=== PATIENT | female | born 1955 | race Caucasian/White ===

== ENCOUNTER 2017-04-01 13:01 | Outpatient (CLI) | payer OTHER ==
--- NOTE | 2017-04-05 14:22 | Mammography Report ---
DATE OF SERVICE: 04/01/2017 DIGITAL BILATERAL SCREENING MAMMOGRAM: 04/01/2017 CLINICAL INDICATION: A 62-year-old for screening. COMPARISON: 02/2016, 02/2015, 02/2014, 02/2013, 02/2012, 01/2011, 01/2010. TECHNIQUE: Routine CC and MLO projections were obtained of the breasts. Bilateral Laterally exaggerated craniocaudal views. FINDINGS: No suspicious masses, clustered microcalcifications, or regions of architectural distortion are identified. There has been no significant interval change. IMPRESSION: Benign findings. RECOMMENDATIONS: Routine annual screening unless otherwise clinically indicated. BIRADS 2 Benign findings. STANDARD QUALIFYING STATEMENTS 1. This examination was reviewed with the aid of Computed-Aided Detection (CAD) . 2. A negative or benign imaging report should not delay biopsy if clinically suspicious findings are present. Consider surgical consultation if warranted. More than 5% of cancers are not identified by imaging. 3. Dense breasts may obscure an underlying neoplasm. TD: 04/02/2017 18:43 [facility]
== END 2017-04-01 13:02 | disposition home or self-care (01) ==
LOC: DI 13:01
PROVIDERS: ATTEND Family Medicine
DX: Z12.31 Encounter for screening mammogram for malignant neoplasm of breast (principal)
CPT/HCPCS: 77067

== ENCOUNTER 2017-04-01 13:01 | Outpatient (CLI) | payer OTHER ==
--- NOTE | 2017-04-03 10:24 | DEXA Report ---
DEXA SCAN: 04/01/2017 CLINICAL INDICATION: Postmenopausal. TECHNIQUE: Dual energy x-ray absorptiometry (DXA) was performed on a [employer] system. Regions measured are the AP spine, femoral neck, and, if needed, forearm. COMPARISON: None. In accordance with the International Society for Clinical Densitometry (ISCD) guidelines, data from previous exams may be reanalyzed using current recommendations and techniques. This is done to allow a more accurate basis for comparison with the current study. FINDINGS: The data for the lumbar spine is as follows: REGION BMD (g/cm/cm) T-SCORE Z-SCORE L1 0.861 -2.2 --- L2 0.972 -1.9 --- L3 1.026 -1.4 --- L4 0.948 -2.1 --- TOTAL 0.953 -1.9 --- NOTE: All evaluable vertebrae are used for classification. The data for the hip is as follows: REGION BMD (g/cm/cm) T-SCORE Z-SCORE Neck 0.737 -2.2 --- TOTAL 0.804 -1.6 --- NOTE: The femoral neck or total proximal femur, whichever is lowest, is used for classification. IMPRESSION: THE WHO CLASSIFICATION BASED ON THE INTERNATIONAL REFERENCE STANDARD IS OSTEOPENIA. THE FRACTURE RISK IS INCREASED. RECOMMENDATION: Patients with diagnosis of osteoporosis or osteopenia should have regular bone mineral density assessment. For those eligible for Medicare, routine testing is allowed once every 2 years. Testing frequency can be increased for patients who have rapidly progressing disease or for those who are receiving medical therapy to restore bone mass. COMMENT: World Health Organization (WHO) definitions for osteoporosis and osteopenia: NORMAL BMD: T-score at 1.0 or higher, fracture risk is low. OSTEOPENIA BMD: T-score between 1.0 and -2.5, fracture risk is increased. OSTEOPOROSIS BMD: T-score at 2.5 or lower, fracture risk high. National Osteoporosis Foundation recommends: 1. Obtain adequate dietary calcium (at least 1200 mg per day) and vitamin D (400 -800 international units per day). 2. Participate, as appropriate, in regular weightbearing and muscle- strengthening exercise. 3. Avoid tobacco use and reduce alcohol and caffeine intake. 4. For more detailed information see the website at www.NOF.org. Harpal Rosales MD NILA TD: 04/03/2017 09:10 JORDAN
== END 2017-04-01 13:02 | disposition home or self-care (01) ==
LOC: DI 13:01
PROVIDERS: ATTEND Family Medicine
DX: M89.9 Disorder of bone, unspecified (principal); M85.80 Other specified disorders of bone density and structure, unspecified site
CPT/HCPCS: 77080

== ENCOUNTER 2018-02-13 12:47 | Outpatient (CLI) | payer OTHER ==
[2018-02-13 12:34] LABS: BASOPHILS # (AUTO) 0.1 10^3/uL (0.0-0.1); BASOPHILS % (AUTO) 1.3 %; EOSINOPHILS # (AUTO) 0.1 10^3/uL (0.0-0.7); EOSINOPHILS % (AUTO) 1.3 %; LYMPHOCYTES # (AUTO) 1.4 10^3/uL (1.5-3.5); LYMPHOCYTES % (AUTO) 27.2 %; MEAN CORPUSCULAR HEMOGLOBIN 31.3 pg (27.0-31.0); MEAN CORPUSCULAR HGB CONC 33.7 g/dL (32.0-36.0); MEAN PLATELET VOLUME 8.5 fL (7.9-10.8); MONOCYTES # (AUTO) 0.3 10^3/uL (0.0-1.0); MONOCYTES % (AUTO) 6.5 %; NEUTROPHILS # (AUTO) 3.2 10^3/uL (1.5-6.6); NEUTROPHILS % (AUTO) 63.7 %; PLT - PLATELET COUNT 257 10^3/uL (130-450); RED BLOOD COUNT 4.48 10^6/uL (4.20-5.40); RED CELL DISTRIBUTION WIDTH 13.6 % (12.0-15.0)
[2018-02-13 12:50] LABS: ALBUMIN 4.2 g/dL (3.2-5.5); ALBUMIN/GLOBULIN RATIO 1.3 (1.0-2.2); ALKALINE PHOSPHATASE 57 IU/L (42-121); ALT ALANINE AMINOTRANSFERASE 24 IU/L (10-60); AST ASPARTATE AMINOTRANSFERASE 23 IU/L (10-42); BILIRUBIN,TOTAL 0.9 mg/dL (0.2-1.0); BUN - BLOOD UREA NITROGEN 18 mg/dL (6-20); CALCIUM 9.3 mg/dL (8.5-10.3); CARBON DIOXIDE - CO2 30 mmol/L (21-32); CHLORIDE 103 mmol/L (101-111); CHOL/HDL RATIO 4.8 (<4.4); CHOLESTEROL 223 mg/dL; CREATININE 0.6 mg/dL (0.4-1.0); GFR - MDRD 101 (>89); GLUCOSE 116 mg/dL (70-100); HDL CHOLESTEROL 46 mg/dL; LDL CHOLESTEROL,CALCULATED 143 mg/dL; LDL/HDL RATIO 3.1 (<4.4); SODIUM 140 mmol/L (135-145); TOTAL PROTEIN 7.5 g/dL (6.7-8.2); VLDL CHOLESTEROL 34 mg/dL
== END 2018-02-13 12:48 | disposition home or self-care (01) ==
LOC: LAB.WCP 12:47
PROVIDERS: ATTEND Family Medicine
DX: M85.80 Other specified disorders of bone density and structure, unspecified site (principal); E78.5 Hyperlipidemia, unspecified; K21.9 Gastro-esophageal reflux disease without esophagitis; I10 Essential (primary) hypertension
CPT/HCPCS: 36415; 80053; 80061; 83721; 84443; 85025

== ENCOUNTER 2018-04-02 09:51 | Outpatient (CLI) | payer OTHER ==
--- NOTE | 2018-04-03 08:57 | Mammography Report ---
Reason: SCREENING MAMM Procedure Date: 04/02/2018 Accession Number: [id number] / [id number] Procedure: MGN - Screening Mammo Dig Bilat CPT Code: FULL RESULT: EXAM: Screening Mammo Dig Bilat DATE: 04/02/2018 10:11 AM CLINICAL HISTORY: Screening. No reported personal or family history of breast cancer. TECHNIQUE: Bilateral CC and MLO views were obtained. COMPARISON: 04/01/2017 through 02/23/2014 FINDINGS: The breasts demonstrate heterogeneously dense fibroglandular parenchyma bilaterally. Bilateral breasts: There are no suspicious masses, calcifications or areas of distortion. IMPRESSION: Negative examination RECOMMENDATION: Routine annual screening unless otherwise clinically indicated. BI-RADS CATEGORY 1: Negative STANDARD QUALIFYING STATEMENTS: 1. This examination was reviewed with the aid of Computer-Aided Detection (CAD). 2. A negative or benign imaging report should not preclude biopsy if clinically suspicious findings are present. 3. Dense breasts may obscure an underlying neoplasm. 4. This examination was reviewed without the aid of 3D breast imaging (tomosynthesis).
== END 2018-04-02 09:52 | disposition home or self-care (01) ==
LOC: DI.N 09:51
DX: Z12.31 Encounter for screening mammogram for malignant neoplasm of breast (principal)
CPT/HCPCS: 77067

== ENCOUNTER 2018-06-13 07:15 | Outpatient (CLI) | payer OTHER ==
[2018-06-13 14:11] LABS: HB2 TOTAL 14.4 g/dL; HEMOGLOBIN A1C 0.6 g/dL
== END 2018-06-13 07:16 | disposition home or self-care (01) ==
LOC: LAB.WCP 07:15
PROVIDERS: ATTEND Family Medicine
DX: R73.01 Impaired fasting glucose (principal)
CPT/HCPCS: 36415; 80048; 83036

== ENCOUNTER 2018-06-17 07:04 | Outpatient (CLI) | payer OTHER ==
[2018-06-17 16:44] LABS: CALCIUM 9.8 mg/dL (8.5-10.3); CREATININE 0.9 mg/dL (0.4-1.0)
== END 2018-06-17 07:05 | disposition home or self-care (01) ==
LOC: LAB.WCP 07:04
PROVIDERS: ATTEND Family Medicine
DX: R73.01 Impaired fasting glucose (principal)
CPT/HCPCS: 36415; 80048

== ENCOUNTER 2018-08-07 13:18 | Outpatient (CLI) | payer OTHER ==
--- NOTE | 2018-08-07 14:37 | XRAY Report ---
Reason: COUGH CHRONIC Procedure Date: 08/07/2018 Accession Number: [id number] / [id number] Procedure: WCP - Chest 2 View X-Ray CPT Code: 89048 FULL RESULT: EXAM: CHEST RADIOGRAPHY EXAM DATE: 08/07/2018 01:14 PM. CLINICAL HISTORY: Cough chronic. COMPARISON: None. TECHNIQUE: 2 views. FINDINGS: Lungs/Pleura: No focal opacities evident. No pleural effusion. No pneumothorax. Normal volumes. Mediastinum: Heart and mediastinal contours are within normal limits for size, mild aortic arch calcifications. Other: None. IMPRESSION: No acute airspace disease is detected. RADIA
== END 2018-08-07 13:19 | disposition home or self-care (01) ==
LOC: DI.WCP 13:18
PROVIDERS: ATTEND Physician Assistant Medical
DX: R05 Cough (principal)
CPT/HCPCS: 71046

== ENCOUNTER 2018-08-20 15:13 | Outpatient (CLI) | payer OTHER ==
[2018-08-20] MEDS ORDERED: IOVERSOL 320 100 ML VIAL IVP ONE (15:32)
[2018-08-20 15:44] LABS: CREATININE 0.9 mg/dL (0.4-1.0)
--- NOTE | 2018-08-21 10:07 | CT Report ---
Reason: COUGH,CHRONIC Procedure Date: 08/20/2018 Accession Number: [id number] / [id number] Procedure: CT - CHEST W CPT Code: FULL RESULT: EXAM: CT CHEST EXAM DATE: 08/20/2018 04:10 PM. CLINICAL HISTORY: Cough, chronic. COMPARISONS: None. TECHNIQUE: Routine helical CT imaging was performed through the chest. IV contrast: 80 mL Optiray 320. Reconstructions: Coronal and sagittal. In accordance with CT protocol optimization, one or more of the following dose reduction techniques were utilized for this exam: automated exposure control, adjustment of mA and/or KV based on patient size, or use of iterative reconstructive technique. FINDINGS: Lungs/Pleura: There is a 3 mm right upper lobe nodule on image 20 series 4. There is a 2 mm nodule in the right upper lobe on image 34. There is a 2 mm nodule in the left upper lobe on image 19. There is a 2 mm nodule in the left upper lobe on image 31. There is a 3 mm nodule in the left lower lobe on image 46. There is a 2 mm fissure/pleural-based nodule along the inferior left fissure on image 45. No bronchial thickening, consolidation, or edema. Pulmonary vasculature is normal. No pericardial or pleural effusion. No pneumothorax. Mediastinum: Normal. No adenopathy or masses. The heart and great vessels are normal. Bones: No aggressive osseous lesions. Visualized Abdomen: Uncharacterized 2 cm left adrenal nodule is noted. Simple right renal cyst. Other: None. IMPRESSION: Uncharacterized 2 cm left adrenal nodule. Pulmonary nodules measuring 3 mm or less. Recommend follow-up of the described nodule(s) according to the following guidelines: Fleischner Society Recommendations 2017 MacMahon et al. Radiology 2017 Solid Nodules-Low Risk Patients: <6 mm (single or multiple) - No routine follow-up* Solid Nodules-High Risk Patients: <6 mm (single or multiple) -Optional CT at 12 months* *Nodules < 6mm do not require routine follow-up, but suspicious nodule morphology, upper lobe location, or both may warrant 12 month follow-up RADIA
== END 2018-08-20 15:14 | disposition home or self-care (01) ==
LOC: DI 15:13
PROVIDERS: ATTEND Physician Assistant Medical
DX: R05 Cough (principal); R91.8 Other nonspecific abnormal finding of lung field
CPT/HCPCS: 36415; 71260; 82565; Q9967

== ENCOUNTER 2018-11-10 08:48 | Outpatient (CLI) | payer OTHER | END 2018-11-10 08:49 | disposition home or self-care (01) | LOC: RT 08:48 | PROVIDERS: ATTEND Internal Medicine Gastroenterology | DX: I10 Essential (primary) hypertension (principal); E78.5 Hyperlipidemia, unspecified | CPT/HCPCS: 93005 ==

== ENCOUNTER 2018-11-13 | Day surgery (SDC) | payer OTHER | END 2018-11-13 07:02 | disposition home or self-care (01) | PROC: 0DJD8ZZ Inspection of Lower Intestinal Tract, Via Natural or Artificial Opening Endoscopic (ICD-10-PCS; principal; 2018-11-13) | DX: Z12.11 Encounter for screening for malignant neoplasm of colon (principal); E11.9 Type 2 diabetes mellitus without complications; I10 Essential (primary) hypertension; K21.9 Gastro-esophageal reflux disease without esophagitis; E78.5 Hyperlipidemia, unspecified; I35.8 Other nonrheumatic aortic valve disorders; M85.80 Other specified disorders of bone density and structure, unspecified site; C44.310 Basal cell carcinoma of skin of unspecified parts of face; N95.1 Menopausal and female climacteric states; L73.8 Other specified follicular disorders; Z87.19 Personal history of other diseases of the digestive system; Z79.51 Long term (current) use of inhaled steroids; Z79.84 Long term (current) use of oral hypoglycemic drugs; Z79.899 Other long term (current) drug therapy | CPT/HCPCS: 45378; J3010; J7120 ==

== ENCOUNTER 2019-04-21 15:13 | Outpatient (CLI) | payer OTHER ==
--- NOTE | 2019-04-23 09:08 | Mammography Report ---
Reason: ROUTINE MAMMO Procedure Date: 04/21/2019 Accession Number: [id number] / [id number] Procedure: DAVID - Screening Mammo w/Joshua CPT Code: Final Report FULL RESULT: EXAM: Screening Mammo w/Joshua DATE: 04/21/2019 4:09 PM CLINICAL HISTORY: The patient is an asymptomatic 63-year-old female. Family history (sister) with breast cancer. TECHNIQUE: (B) - Bilateral CC and MLO views were obtained. COMPARISON: 04/02/2018, 04/01/2017, 03/13/2016, 02/23/2015, 02/23/2014, 02/18/2013 PARENCHYMAL PATTERN: (D) - The breasts demonstrate heterogeneously dense fibroglandular parenchyma bilaterally. FINDINGS: The pattern of nodular asymmetry is stable given positional variation and progress involution. There are no suspicious masses, calcifications, or areas of distortion. IMPRESSION: Negative examination. BI-RADS category 1. RECOMMENDATION: (ANNUAL) - Recommend routine annual screening mammography. BI-RADS CATEGORY: (1) - Negative. STANDARD QUALIFYING STATEMENTS: A negative or benign imaging report should not preclude biopsy if clinically suspicious findings are present. Dense breasts may obscure an underlying neoplasm. This examination was reviewed with the aid of 3D breast imaging (tomosynthesis).
== END 2019-04-21 15:14 | disposition home or self-care (01) ==
LOC: DI 15:13
DX: Z12.31 Encounter for screening mammogram for malignant neoplasm of breast (principal); Z80.3 Family history of malignant neoplasm of breast
CPT/HCPCS: 77063; 77067

== ENCOUNTER 2019-04-21 15:14 | Outpatient (CLI) | payer OTHER ==
--- NOTE | 2019-04-22 08:46 | DEXA Report ---
Reason: OSTEOPENIA Procedure Date: 04/21/2019 Accession Number: [id number] / [id number] Procedure: DEX - Dexa Spine and/or Hip CPT Code: Final Report FULL RESULT: EXAM: Dexa Spine and/or Hip DATE: 04/21/2019 4:11 PM CLINICAL HISTORY: OSTEOPENIA TECHNIQUE: Dual energy x-ray absorptiometry (DXA) was performed on a [employer] System. Regions measured are the AP Spine, femoral neck, and if needed forearm. COMPARISON: 04/01/2017 In accordance with the International Society for Clinical Densitometry (ISCD) guidelines, data from previous exams may be reanalyzed using current recommendations and techniques. This is done to allow a more accurate basis for comparison with the current study. FINDINGS: The data for the lumbar spine is as follows: BMD (g/cm/cm) T-SCORE Z-SCORE REGION L1 1.002 -1.1 L2 1.082 -1.0 L3 1.104 -0.8 L4 1.124 -0.6 TOTAL 1.078 -0.8 NOTE: All evaluable vertebrae are used for classification The data for the hip is as follows: BMD (g/cm/cm) T-SCORE Z-SCORE REGION Neck 0.759 -2.0 TOTAL 0.805 -1.6 NOTE: The femoral neck or total proximal femur, whichever is lowest, is used for classification. DXA RESULTS SUMMARY: Spine SCAN DATE AGE BMD CHANGE VS CHANGE VS PREVIOUS PREVIOUS % 3/21/2019 [age] 1.078 0.125* 13.1* 04/01/2017 [age] 0.953 * Denotes significant change at the 95% confidence level. Denotes dissimilar scan types or analysis methods. DXA RESULTS SUMMARY: Hip SCAN DATE AGE BMD CHANGE VS CHANGE VS PREVIOUS PREVIOUS % [birth year][age]21/2019 [age] 0.805 0.001 0.1 04[birth year]01[birth year]2017 [age] 0.804 * Denotes significant change at the 95% confidence level. Denotes dissimilar scan types or analysis methods. IMPRESSION: THE WHO CLASSIFICATION BASED ON THE INTERNATIONAL REFERENCE STANDARD IS OSTEOPENIA. THE FRACTURE RISK IS INCREASED. RECOMMENDATION: Patients with diagnosis of osteoporosis or osteopenia should have regular bone mineral density assessment. For those eligible for Medicare, routine testing is allowed once every 2 years. Testing frequency can be increased for patients who have rapidly progressing disease or for those who are receiving medical therapy to restore bone mass. COMMENT: World Health Organization (WHO) definitions for osteoporosis and osteopenia: NORMAL BMD: T-score at -1.0 or higher, fracture risk is low OSTEOPENIA BMD: T-score between -1.0 and -2.5, fracture risk is increased. OSTEOPOROSIS BMD: T-score at -2.5 or lower, fracture risk is high. National Osteoporosis Foundation recommends: 1. Obtain adequate dietary calcium (at least 1200 mg per day) and vitamin D (400-800 international units per day). 2. Participate, as appropriate, in regular weightbearing and muscle-strengthening exercise. 3. Avoid tobacco use and reduce alcohol and caffeine intake. 4. For more detailed information see the website at www.NOF.org.
== END 2019-04-21 15:15 | disposition home or self-care (01) ==
LOC: DI 15:14
PROVIDERS: ATTEND Family Medicine
DX: M85.88 Other specified disorders of bone density and structure, other site (principal)
CPT/HCPCS: 77080

== ENCOUNTER 2019-05-11 08:00 | Outpatient (CLI) | payer OTHER | END 2019-05-11 23:59 | disposition home or self-care (01) | LOC: LAB.R 08:00 | PROVIDERS: ATTEND Family Medicine | DX: R19.7 Diarrhea, unspecified (principal) | CPT/HCPCS: 81599; 87045; 87046; 87177; 87209; 87493 ==

== ENCOUNTER 2019-05-11 08:00 | Outpatient (CLI) | payer OTHER ==
[2019-05-11 18:42] LABS: BASOPHILS # (AUTO) 0.1 10^3/uL (0.0-0.1); BASOPHILS % (AUTO) 1.3 %; EOSINOPHILS # (AUTO) 0.1 10^3/uL (0.0-0.7); EOSINOPHILS % (AUTO) 1.2 %; HGB - HEMOGLOBIN 14.1 g/dL (12.0-16.0); LYMPHOCYTES # (AUTO) 1.3 10^3/uL (1.5-3.5); LYMPHOCYTES % (AUTO) 16.9 %; MEAN CORPUSCULAR HEMOGLOBIN 30.8 pg (27.0-31.0); MEAN CORPUSCULAR HGB CONC 32.3 g/dL (32.0-36.0); MEAN CORPUSCULAR VOLUME 95.4 fL (81.0-99.0); MEAN PLATELET VOLUME 10.5 fL (7.9-10.8); MONOCYTES # (AUTO) 0.5 10^3/uL (0.0-1.0); MONOCYTES % (AUTO) 6.1 %; NEUTROPHILS # (AUTO) 5.8 10^3/uL (1.5-6.6); NEUTROPHILS % (AUTO) 74.1 %; PLT - PLATELET COUNT 306 10^3/uL (130-450); RED BLOOD COUNT 4.58 10^6/uL (4.20-5.40); RED CELL DISTRIBUTION WIDTH 13.2 % (12.0-15.0); WHITE BLOOD COUNT 7.8 x10^3/uL (4.8-10.8)
[2019-05-11 19:06] LABS: ALBUMIN 4.3 g/dL (3.2-5.5); ALBUMIN/GLOBULIN RATIO 1.2 (1.0-2.2); BILIRUBIN,TOTAL 0.7 mg/dL (0.2-1.0); CALCIUM 9.7 mg/dL (8.5-10.3); CREATININE 0.8 mg/dL (0.4-1.0); TOTAL PROTEIN 7.8 g/dL (6.7-8.2)
== END 2019-05-11 23:59 | disposition home or self-care (01) ==
LOC: LAB.WCP 08:00
PROVIDERS: ATTEND Family Medicine
DX: K52.9 Noninfective gastroenteritis and colitis, unspecified (principal)
CPT/HCPCS: 36415; 80053; 81599; 85025; 87045; 87046; 87177; 87209; 87329; 87493

== ENCOUNTER 2019-12-16 07:26 | Outpatient (CLI) | payer OTHER ==
[2019-12-16 12:10] LABS: BASOPHILS # (AUTO) 0.1 10^3/uL (0.0-0.1); BASOPHILS % (AUTO) 1.3 %; EOSINOPHILS # (AUTO) 0.1 10^3/uL (0.0-0.7); EOSINOPHILS % (AUTO) 2.1 %; HGB - HEMOGLOBIN 13.8 g/dL (12.0-16.0); LYMPHOCYTES # (AUTO) 1.8 10^3/uL (1.5-3.5); LYMPHOCYTES % (AUTO) 29.7 %; MEAN CORPUSCULAR HEMOGLOBIN 30.3 pg (27.0-31.0); MEAN CORPUSCULAR HGB CONC 31.4 g/dL (32.0-36.0); MEAN CORPUSCULAR VOLUME 96.5 fL (81.0-99.0); MEAN PLATELET VOLUME 10.2 fL (7.9-10.8); MONOCYTES # (AUTO) 0.5 10^3/uL (0.0-1.0); MONOCYTES % (AUTO) 8.1 %; NEUTROPHILS # (AUTO) 3.6 10^3/uL (1.5-6.6); NEUTROPHILS % (AUTO) 58.5 %; PLT - PLATELET COUNT 287 10^3/uL (130-450); RED BLOOD COUNT 4.55 10^6/uL (4.20-5.40); RED CELL DISTRIBUTION WIDTH 13.3 % (12.0-15.0); WHITE BLOOD COUNT 6.2 x10^3/uL (4.8-10.8)
[2019-12-16 12:15] LABS: ALBUMIN/GLOBULIN RATIO 1.3 (1.0-2.2); ALKALINE PHOSPHATASE 61 IU/L (42-121); ALT ALANINE AMINOTRANSFERASE 29 IU/L (10-60); AST ASPARTATE AMINOTRANSFERASE 21 IU/L (10-42); BILIRUBIN,TOTAL 0.6 mg/dL (0.2-1.0); BUN - BLOOD UREA NITROGEN 18 mg/dL (6-20); CALCIUM 9.2 mg/dL (8.5-10.3); CARBON DIOXIDE - CO2 32 mmol/L (21-32); CHLORIDE 101 mmol/L (101-111); CHOLESTEROL 230 mg/dL; CREATININE 0.8 mg/dL (0.4-1.0); GLUCOSE 90 mg/dL (70-100); HDL CHOLESTEROL 46 mg/dL; LDL CHOLESTEROL,CALCULATED 135 mg/dL; LDL/HDL RATIO 2.9 (<4.4); SODIUM 142 mmol/L (135-145); TOTAL PROTEIN 7.2 g/dL (6.7-8.2); VLDL CHOLESTEROL 49 mg/dL
[2019-12-16 12:32] LABS: HEMOGLOBIN A1c% 5.9 % (4.27-6.07)
== END 2019-12-16 23:59 | disposition home or self-care (01) ==
LOC: LAB.WCP 07:26
PROVIDERS: ATTEND Family Medicine
DX: R73.03 Prediabetes (principal)
CPT/HCPCS: 36415; 80053; 80061; 83036; 83721; 85025

== ENCOUNTER 2020-05-04 13:18 | Outpatient (CLI) | payer OTHER ==
--- NOTE | 2020-05-05 09:47 | Mammography Report ---
BILATERAL DIGITAL SCREENING MAMMOGRAM 3D/2D: 05/04/2020 CLINICAL: Family history of breast cancer. Routine screening. Comparison is made to exams dated: 04/21/2019 mammogram, 04/02/2018 mammogram, 04/01/2017 mammogram, 05/13/2015 mammogram, 02/23/2015 mammogram, and 02/23/2014 mammogram - [facility]. The tissue of both breasts is heterogeneously dense. This may lower the sensitivity of mammography. No significant masses, calcifications, or other findings are seen in either breast. There has been no significant interval change. IMPRESSION: NEGATIVE There is no mammographic evidence of malignancy. A 1 year screening mammogram is recommended. This exam was interpreted at Station ID: [id number]. NOTE: For mammograms, a report in lay terms will be sent to the patient. Approximately 15% of breast malignancies will not be visualized mammographically. In the management of a palpable breast mass, a negative mammogram must not discourage biopsy of a clinically suspicious lesion. Electronically Signed By: Joni Irene M.D. [facility] [place]:05/04/2020 17:16:41 ACR BI-RADS Category 1: Negative 3341F PARENCHYMAL PATTERN: (D) - The breast(s) demonstrate(s) heterogeneously dense fibroglandular karlee luo. BI-RADS CATEGORY: (1) - 1 RECOMMENDATION: (ANNUAL) - Recommend routine annual screening mammography. [id number] 1 year screening LATERALITY: (B)
== END 2020-05-04 13:19 | disposition home or self-care (01) ==
LOC: DI.N 13:18
DX: Z12.31 Encounter for screening mammogram for malignant neoplasm of breast (principal); Z80.3 Family history of malignant neoplasm of breast

== ENCOUNTER 2020-05-11 15:03 | Outpatient (CLI) | payer OTHER ==
--- NOTE | 2020-05-11 16:01 | XRAY Report ---
PROCEDURE: Shoulder 2 View LT INDICATIONS: LEFT SHOULDER IMPINGEMENT SYNDROME TECHNIQUE: 2 views of the shoulder were acquired. COMPARISON: None. FINDINGS: Bones: No fractures or dislocations. No suspicious bony lesions. Visualized ribs appear intact. M oderate periarticular osteophyte formation at the acromial clavicular joint. Mild periarticular osteo phyte formation at the glenohumeral joint. Soft tissues: No suspicious soft tissue calcifications. IMPRESSION: Osteoarthritis. No acute fracture. No osseous lesion. If symptoms and/or clinical suspic ion for pathology continue, further assessment with repeat plain films, or advanced imaging (e.g., CT , MRI, or bone scan) is recommended for further assessment. Reviewed by: Madalyn Warren MD on 05/11/2020 4:00 PM [facility] Approved by: Madalyn Warren MD on 05/11/2020 4:00 PM [facility] Station ID: [id number]
== END 2020-05-11 23:59 | disposition home or self-care (01) ==
LOC: DI.WCP 15:03
PROVIDERS: ATTEND Physician Assistant Medical
DX: M19.012 Primary osteoarthritis, left shoulder (principal)

== ENCOUNTER 2020-05-14 08:02 | Outpatient (CLI) | payer OTHER ==
[2020-05-14 08:26] LABS: BASOPHILS # (AUTO) 0.1 10^3/uL (0.0-0.1); BASOPHILS % (AUTO) 1.1 %; EOSINOPHILS # (AUTO) 0.1 10^3/uL (0.0-0.7); EOSINOPHILS % (AUTO) 1.4 %; LYMPHOCYTES # (AUTO) 1.6 10^3/uL (1.5-3.5); LYMPHOCYTES % (AUTO) 28.8 %; MEAN CORPUSCULAR HEMOGLOBIN 31.4 pg (27.0-31.0); MEAN CORPUSCULAR HGB CONC 33.6 g/dL (32.0-36.0); MEAN CORPUSCULAR VOLUME 93.5 fL (81.0-99.0); MEAN PLATELET VOLUME 9.6 fL (7.9-10.8); MONOCYTES # (AUTO) 0.4 10^3/uL (0.0-1.0); NEUTROPHILS # (AUTO) 3.5 10^3/uL (1.5-6.6); NEUTROPHILS % (AUTO) 61.5 %; PLT - PLATELET COUNT 282 10^3/uL (130-450); RED BLOOD COUNT 4.78 10^6/uL (4.20-5.40); RED CELL DISTRIBUTION WIDTH 12.8 % (12.0-15.0); WHITE BLOOD COUNT 5.7 x10^3/uL (4.8-10.8)
[2020-05-14 09:36] LABS: ALBUMIN 4.1 g/dL (3.2-5.5); ALBUMIN/GLOBULIN RATIO 1.2 (1.0-2.2); ALKALINE PHOSPHATASE 61 IU/L (42-121); ALT ALANINE AMINOTRANSFERASE 30 IU/L (10-60); AST ASPARTATE AMINOTRANSFERASE 23 IU/L (10-42); BUN - BLOOD UREA NITROGEN 16 mg/dL (6-20); CALCIUM 9.7 mg/dL (8.5-10.3); CARBON DIOXIDE - CO2 27 mmol/L (21-32); CHLORIDE 102 mmol/L (101-111); CHOL/HDL RATIO 4.2 (<4.4); CHOLESTEROL 242 mg/dL; CREATININE 0.8 mg/dL (0.4-1.0); GLUCOSE 117 mg/dL (70-100); HDL CHOLESTEROL 58 mg/dL; LDL CHOLESTEROL,CALCULATED 148 mg/dL; LDL/HDL RATIO 2.6 (<4.4); TOTAL PROTEIN 7.4 g/dL (6.7-8.2); VLDL CHOLESTEROL 36 mg/dL
[2020-05-14 09:48] LABS: THYROID STIMULATING HORMONE 1.3 uIU/mL (0.34-5.60)
[2020-05-14 09:50] LABS: FREE T4 (FREE THYROXINE) 1.07 ng/dL (0.58-1.64)
[2020-05-14 11:57] LABS: HEMOGLOBIN A1c% 5.6 % (4.27-6.07)
== END 2020-05-14 08:03 | disposition home or self-care (01) ==
LOC: LAB 08:02
PROVIDERS: ATTEND Family Medicine
DX: E88.81 Metabolic syndrome and other insulin resistance (principal)
CPT/HCPCS: 36415; 80053; 80061; 83036; 83721; 84439; 84443; 85025

== ENCOUNTER 2020-11-04 08:00 | Outpatient (CLI) | payer OTHER ==
[2020-11-04 12:38] LABS: ALBUMIN 4.2 g/dL (3.2-5.5); ALBUMIN/GLOBULIN RATIO 1.2 (1.0-2.2); ALKALINE PHOSPHATASE 58 IU/L (42-121); ALT ALANINE AMINOTRANSFERASE 30 IU/L (10-60); AST ASPARTATE AMINOTRANSFERASE 26 IU/L (10-42); BILIRUBIN,TOTAL 0.9 mg/dL (0.2-1.0); BUN - BLOOD UREA NITROGEN 19 mg/dL (6-20); CALCIUM 9.7 mg/dL (8.5-10.3); CARBON DIOXIDE - CO2 30 mmol/L (21-32); CHLORIDE 100 mmol/L (101-111); CHOL/HDL RATIO 4.8 (<4.4); CHOLESTEROL 241 mg/dL; GFR - MDRD 55 (>89); GLUCOSE 101 mg/dL (70-100); HDL CHOLESTEROL 50 mg/dL; LDL CHOLESTEROL,CALCULATED 151 mg/dL; POTASSIUM 3.7 mmol/L (3.5-5.0); SODIUM 142 mmol/L (135-145); TOTAL PROTEIN 7.7 g/dL (6.7-8.2); TRIGLYCERIDES 202 mg/dL; VLDL CHOLESTEROL 40 mg/dL
[2020-11-04 12:55] LABS: ESTIMATED AVERAGE GLUCOSE 123 mg/dL (70-100); HEMOGLOBIN A1c% 5.9 % (4.27-6.07)
== END 2020-11-04 23:59 | disposition home or self-care (01) ==
LOC: LAB.WCP 08:00
PROVIDERS: ATTEND Physician Assistant Medical
DX: R73.03 Prediabetes (principal)
CPT/HCPCS: 36415; 80053; 80061; 83036; 83721

== ENCOUNTER 2020-12-28 08:58 | Outpatient (CLI) | payer OTHER | END 2020-12-28 08:59 | disposition home or self-care (01) | LOC: DI 08:58 | PROVIDERS: ATTEND Physician Assistant Medical | DX: I35.8 Other nonrheumatic aortic valve disorders (principal) | CPT/HCPCS: 93306 ==

== ENCOUNTER 2021-02-10 00:26 | Inpatient (IN) | payer MEDICARE, OTHER ==
[2021-02-10 00:57] LABS: BILIRUBIN,URINE NEGATIVE (NEGATIVE); CLARITY,URINE CLEAR (CLEAR); GLUCOSE, URINE (UA) NEGATIVE (NEGATIVE); KETONES,URINE (UA) NEGATIVE (NEGATIVE); LEUKOCYTE ESTERASE, URINE NEGATIVE (NEGATIVE); NITRITE,URINE NEGATIVE (NEGATIVE); OCCULT BLOOD,URINE TRACE-LYSE (NEGATIVE); PROTEIN,URINE NEGATIVE (NEGATIVE); UROBILINOGEN,URINE 0.2 (NORMAL) E.U./dL (NORMAL)
--- NOTE | 2021-02-10 01:02 | ED Physician Documentation ---
PD HPI ABD PAIN - Stated complaint Stated Complaint: RLQ PAIN - Chief complaint Chief Complaint: Abd Pain - History obtained from History obtained from: Patient - History of Present Illness Timing - onset: How many hours ago (about 24 hours ago - noted onset of some discomfort RLQ that has steadily worsened to this evening.), Yesterday Timing - duration: Days (1) Timing - details: Gradual onset, Still present Quality: Cramping, Aching, Pain Location: RLQ Radiation: No: Chest, Lower back, Right flank Improved by: No: BM Worsened by: Eating, Moving, Palpation. No: Breathing Associated symptoms: Fever (mild feverish feeling but thought it was related to recent vaccine few days ago.), Nausea. No: Vomiting, Diarrhea, Constipation Similar symptoms before: Has not had sx before Recently seen: Not recently seen Review of Systems Constitutional: reports: Chills, Myalgias Nose: denies: Rhinorrhea / runny nose, Congestion Throat: denies: Sore throat Cardiac: denies: Chest pain / pressure Respiratory: denies: Cough GI: reports: Abdominal Pain (just the past day), Nausea. denies: Vomiting, Constipation, Diarrhea : denies: Dysuria Skin: denies: Rash Neurologic: denies: Focal weakness, Numbness, Near syncope, Headache PD PAST MEDICAL HISTORY - Past Medical History Past Medical History: Yes Cardiovascular: Hypertension Respiratory: None Neuro: None Endocrine/Autoimmune: None GI: None : None - Present Medications Home Medications: Ambulatory Orders Medication Instructions Recorded Confirmed Acyclovir 400 mg PO DAILY PRN 11/10/18 11/10/18 Albuterol 90 mcg IH DAILY PRN 11/10/18 11/10/18 Amoxicillin 2,000 mg PO ONCE PRN 11/10/18 11/10/18 Atenolol [Tenormin] 50 mg PO BID 11/10/18 11/13/18 Benzonatate 100 mg PO DAILY PRN 11/10/18 11/10/18 Calcium Carbonate/Vitamin D3 2 tab PO DAILY 11/10/18 11/10/18 [Calcium 600-Vit D3 800 Tablet] Cyclobenzaprine [Flexeril] 10 mg PO DAILY PRN 11/10/18 11/10/18 Felodipine [Felodipine ER] 5 mg PO DAILY 11/10/18 11/13/18 Indapamide 1.25 mg PO DAILY 11/10/18 11/10/18 Losartan Potassium 100 mg PO DAILY 11/10/18 11/13/18 Meclizine [Antivert] 2 tab PO DAILY PRN 11/10/18 11/10/18 Metformin HCl [Fortamet] 500 mg PO BID 11/10/18 11/10/18 Potassium Chloride [Micro-K] 10 meq PO DAILY 11/10/18 11/13/18 Rizatriptan Benzoate [Rizatriptan] 10 mg PO DAILY PRN 11/10/18 11/10/18 raNITIdine [Zantac] 150 mg PO BID 11/10/18 11/10/18 - Allergies Allergies/Adverse Reactions: Allergies Allergy/AdvReac Type Severity Reaction Status Date / Time No Known Drug Allergies Allergy Verified 02/10/21 00:37 PD ED PE NORMAL - Vitals Vital signs reviewed: Yes - General General: Alert and oriented X 3, Well developed/nourished, Other (does appear uncomfortable with grimacing ) - HEENT HEENT: Moist mucous membranes - Neck Neck: Supple, no meningeal sign, No adenopathy - Cardiac Cardiac: RRR, No murmur - Respiratory Respiratory: Clear bilaterally - Abdomen Abdomen: Soft, Non distended, No organomegaly, Other (very tender RLQ with local guarding and percussion tender. Some referred tenderness to RLQ from rest of abd. ) - Female Female : Deferred - Rectal Rectal: Deferred - Back Back: No CVA TTP - Derm Derm: Normal color, Warm and dry - Extremities Extremities: No edema, No calf tenderness / cord - Neuro Neuro: Alert and oriented X 3, No motor deficit, Normal speech Results - Vitals Vitals: Vital Signs - 24 hr 02/10/21 02/10/21 00:34 02:22 Temperature 36.5 C Heart Rate 69 75 Respiratory 18 18 Rate Blood Pressure 166/85 H 154/78 H O2 Saturation 98 100 Oxygen O2 Source Room air - Labs Labs: Laboratory Tests 02/10/21 02/10/21 02/10/21 00:47 00:55 00:55 WBC 11.7 H RBC 4.61 Hgb 14.5 Hct 43.4 MCV 94.1 MCH 31.5 H MCHC 33.4 RDW 13.4 Plt Count 280 MPV 10.3 Neut # (Auto) 9.8 H Lymph # (Auto) 1.0 L [place] # (Auto) 0.7 Eos # (Auto) 0.0 Baso # (Auto) 0.1 Absolute Nucleated RBC 0.00 Nucleated RBC % 0.0 Sodium 139 Potassium 3.5 Chloride 103 Carbon Dioxide 27 Anion Gap 9.0 BUN 16 Creatinine 1.0 Estimated GFR (MDRD) 55 L Glucose 139 H Calcium 9.5 Total Bilirubin 0.6 AST 22 ALT 22 Alkaline Phosphatase 66 Total Protein 7.6 Albumin 4.3 Globulin 3.3 Albumin/Globulin Ratio 1.3 Lipase 45 Urine Color YELLOW Urine Clarity CLEAR Urine pH 6.0 Ur Specific [place] 1.020 Urine Protein NEGATIVE Urine Glucose (UA) NEGATIVE Urine Ketones NEGATIVE Urine Occult Blood TRACE-LYSE Urine Nitrite NEGATIVE Urine Bilirubin NEGATIVE Urine Urobilinogen 0.2 (NORMAL) Ur Leukocyte Esterase NEGATIVE Ur Microscopic Review NOT INDICATED Urine Culture Comments NOT INDICATED - Rads (name of study) abd/pelvic CT Radiology: Prelim report reviewed (Uncomplicated appendicitis with appendicolith and swelling. ), See rad report PD MEDICAL DECISION MAKING - ED course Complexity details: reviewed results, re-evaluated patient, considered differential (concerning for appy, right sided diverticulitis, other process. ), d/w patient, d/w telecom sales consultant (Dr. Villela) Departure - Departure Disposition: ED Transfer to [facility] Clinical Impression: Appendicitis Qualifiers: Appendicitis type: acute appendicitis Acute appendicitis type: with localized peritonitis Appendicitis gangrene presence: without gangrene Appendicitis perforation presence: without perforation Appendicitis abscess presence: without abscess Qualified Code(s): K35.30 - Acute appendicitis with localized peritonitis, without perforation or gangrene Abdominal pain Qualifiers: Abdominal location: right lower quadrant Qualified Code(s): R10.31 - Right lower quadrant pain Condition: Stable Record reviewed to determine appropriate education?: Yes
[2021-02-10 01:12] LABS: ALBUMIN 4.3 g/dL (3.2-5.5); ALBUMIN/GLOBULIN RATIO 1.3 (1.0-2.2); BILIRUBIN,TOTAL 0.6 mg/dL (0.2-1.0); CALCIUM 9.5 mg/dL (8.5-10.3); POTASSIUM 3.5 mmol/L (3.5-5.0); TOTAL PROTEIN 7.6 g/dL (6.7-8.2)
[2021-02-10 01:13] LABS: BASOPHILS # (AUTO) 0.1 10^3/uL (0.0-0.1); BASOPHILS % (AUTO) 0.5 %; EOSINOPHILS % (AUTO) 0.3 %; HCT - HEMATOCRIT 43.4 % (37.0-47.0); HGB - HEMOGLOBIN 14.5 g/dL (12.0-16.0); LYMPHOCYTES % (AUTO) 8.6 %; MEAN CORPUSCULAR HEMOGLOBIN 31.5 pg (27.0-31.0); MEAN CORPUSCULAR HGB CONC 33.4 g/dL (32.0-36.0); MEAN CORPUSCULAR VOLUME 94.1 fL (81.0-99.0); MEAN PLATELET VOLUME 10.3 fL (7.9-10.8); MONOCYTES # (AUTO) 0.7 10^3/uL (0.0-1.0); MONOCYTES % (AUTO) 6.2 %; NEUTROPHILS # (AUTO) 9.8 10^3/uL (1.5-6.6); NEUTROPHILS % (AUTO) 84.1 %; PLT - PLATELET COUNT 280 10^3/uL (130-450); RED BLOOD COUNT 4.61 10^6/uL (4.20-5.40); RED CELL DISTRIBUTION WIDTH 13.4 % (12.0-15.0); WHITE BLOOD COUNT 11.7 x10^3/uL (4.8-10.8)
[2021-02-10] MEDS ORDERED: KETOROLAC 15 MG/ML VIAL IVP STA (01:15)
[2021-02-10] MEDS ORDERED: HYDROmorphone 1 MG/ML CARPUJECT IVP STA (01:15)
[2021-02-10] MEDS ORDERED: SODIUM CHLORIDE 0.9% 1,000 ML IV STA (01:15)
[2021-02-10] MEDS ORDERED: IOVERSOL 320 100 ML VIAL IVP ONE ×2 (01:46→02:07)
[2021-02-10] MEDS ORDERED: AMPICILLIN/SULBACTAM 1.5 GM in SODIUM CHLORIDE 0.9% MINIBAG 100 ML IV STA (03:17)
[2021-02-10] MEDS ORDERED: ONDANSETRON ODT 4 MG TABLET TL PRN (03:25)
[2021-02-10] MEDS ORDERED: SODIUM CHLORIDE FLUSH 0.9% 10 ML SYRINGE IVP PRN (03:25)
[2021-02-10] MEDS ORDERED: ACETAMINOPHEN 325 MG TABLET PO PRN (03:25)
[2021-02-10] MEDS ORDERED: HYDROcod/ACETAM 10 MG/325 MG TABLET PO PRN (03:25)
[2021-02-10] MEDS ORDERED: PROCHLORPERAZINE 10 MG/2 ML VIAL IVP PRN (03:25)
[2021-02-10] MEDS ORDERED: HYDROmorphone 0.5 MG/0.5 ML SYRINGE IVP PRN ×2 (03:25→17:34)
[2021-02-10] MEDS ORDERED: oxyCODONE 5 MG TABLET PO PRN ×2 (03:25)
[2021-02-10] MEDS ORDERED: ONDANSETRON 4 MG/2 ML VIAL IVP PRN ×2 (03:25→17:34)
[2021-02-10] MEDS ORDERED: ONDANSETRON 4 MG/2 ML VIAL IVP STA (03:38)
[2021-02-10] MEDS: SODIUM CHLORIDE 0.9% 1,000 ML IV SCH ×3 (04:42→19:04)
[2021-02-10 06:04] LABS: B. PARAPERTUSSIS- RESP PCR PAN NOT DETECTED; B. PERTUSSIS- RESP PCR PANEL NOT DETECTED; C. PNEUMONIAE- RESP PCR PANEL NOT DETECTED; CORONAVIRUS 229E-RESP PCR NOT DETECTED; CORONAVIRUS HKU1-RESP PCR NOT DETECTED; CORONAVIRUS NL63-RESP PCR NOT DETECTED; CORONAVIRUS OC43-RESP PCR NOT DETECTED; HUMAN METAPNEUMOVIRUS NOT DETECTED; INFLUENZA A- RESP PCR PANEL NOT DETECTED; INFLUENZA B - RESP PCR PANEL NOT DETECTED; M. PNEUMONIAE- RESP PCR PANEL NOT DETECTED; PARAINFLUENZA VIRUS 1 NOT DETECTED; PARAINFLUENZA VIRUS 2 NOT DETECTED; PARAINFLUENZA VIRUS 3 NOT DETECTED; PARAINFLUENZA VIRUS 4 NOT DETECTED; RHINOVIRUS/ENTEROVIRUS NOT DETECTED; RSV- RESP PCR PANEL NOT DETECTED; SARS-CoV-2 -RESP PCR PANEL NOT DETECTED
[2021-02-10] MEDS: HYDROcod/ACETAM 5/325 MG TABLET PO PRN ×3 (08:37→23:49)
[2021-02-10] MEDS: SODIUM CHLORIDE FLUSH 0.9% 10 ML SYRINGE IVP SCH ×2 (08:39→16:04)
--- NOTE | 2021-02-10 11:02 | CT Report ---
PROCEDURE: Abdomen/Pelvis W INDICATIONS: RLQ pain, concern for appy CONTRAST: IV CONTRAST: Optiray 320 ml: 100 PO CONTRAST: *NO PO CONTRAST TECHNIQUE: After the administration of IV contrast, 5 mm thick sections acquired from the diaphragms to the symp hysis. 5 mm thick coronal and sagittal reformats were acquired. For radiation dose reduction, the f ollowing was used: automated exposure control, adjustment of mA and/or kV according to patient size. COMPARISON: CT chest 08/20/2018, report only, as images are currently unavailable FINDINGS: Image quality: Excellent. ABDOMEN: Lung bases: Lung bases are clear. Heart size is normal. Solid organs: Liver is enlarged with steatosis. The spleen is normal in size and enhancement. Gallb ladder is unremarkable Biliary system is non dilated. Pancreas enhances normally. 1.8 cm left adren al nodule, similar description as identified in prior report. Kidneys demonstrate normal size and enh ancement, without hydronephrosis. Simple right renal cyst is present. Peritoneum and bowel: Bowel loops are nonobstructive. The appendix is enlarged measuring 1.2 cm. Cori endicolith is noted. Surrounding periappendiceal inflammatory changes present. No visualized perforat ion. No free fluid or free air. Nodes and vessels: No retroperitoneal or mesenteric adenopathy by size criteria. Aorta and inferior vena cava are normal in size. Miscellaneous: No ventral hernias. PELVIS: Genitourinary: Bladder wall thickness is normal. Miscellaneous: No inguinal hernias or adenopathy. Bones: No suspicious bony lesions. No vertebral body compression fractures. IMPRESSION: 1. Enlarged appendix with periappendiceal inflammatory change and appendicolith most consistent with appendicitis. No visualized perforation. The above findings are concordant with preliminary report. Reviewed by: Lyndsay Coleman MD on 02/10/2021 11:00 AM PDT Approved by: Lyndsay Coleman MD on 02/10/2021 11:00 AM PDT Station ID: [id number]
--- NOTE | 2021-02-10 11:24 | ANESTHESIA ---
Pre-Anesthesia VS, & Labs - Diagnosis appendicitis - Procedure laparoscopic appendectomy Vital Signs: Temp Pulse Resp BP Pulse Ox 36.6 C 65 16 147/72 H 97 02/10/21 08:08 02/10/21 08:08 02/10/21 08:08 02/10/21 08:08 02/10/21 08:08 Height: 5 ft 5 in Weight (kg): 80.5 kg Body Mass Index: 29.5 BMI Classification: Overweight - NPO >8 hours Last Fluid Intake: sips with meds this am Last Food Intake: yesterday - Is Patient ?: No - Lab Results Current Lab Results: Laboratory Tests 02/10/21 00:55: Sodium 139, Potassium 3.5, Chloride 103, Carbon Dioxide 27, Anion Gap 9.0, BUN 16, Creatinine 1.0, Estimated GFR (MDRD) 55 L, Glucose 139 H, Calcium 9.5, Total Bilirubin 0.6, AST 22, ALT 22, Alkaline Phosphatase 66, Total Protein 7.6, Albumin 4.3, Globulin 3.3, Albumin/Globulin Ratio 1.3, Lipase 45 02/10/21 00:55: WBC 11.7 H, RBC 4.61, Hgb 14.5, Hct 43.4, MCV 94.1, MCH 31.5 H, MCHC 33.4, RDW 13.4, Plt Count 280, MPV 10.3, Neut # (Auto) 9.8 H, Lymph # (Auto) 1.0 L, Sawyer # (Auto) 0.7, Eos # (Auto) 0.0, Baso # (Auto) 0.1, Absolute Nucleated RBC 0.00, Nucleated RBC % 0.0 Fish Bones: 02/10/21 00:55 02/10/21 00:55 Home Medications and Allergies Active Medications Acetaminophen (Acetaminophen 325 Mg Tablet) 650 mg PO Q4HR PRN PRN Reason: Pain 1 to 4 Hydrocodone Bitart/Acetaminophen (Hydrocod/Acetam 5/325 Mg Tablet) 1 tab PO Q4HR PRN PRN Reason: Pain 5 to 7 Last Admin: 02/10/21 08:37 Dose: 1 tab Documented by: Hydrocodone Bitart/Acetaminophen (Hydrocod/Acetam 10 Mg/325 Mg Tablet) 1 tab PO Q4HR PRN PRN Reason: Pain 8 to 10 Hydromorphone HCl (Hydromorphone 0.5 Mg/0.5 Ml Syringe) 0.5 mg IVP Q2H PRN PRN Reason: Pain 8 to 10 Sodium Chloride (Normal Saline 0.9%) 1,000 mls @ 125 mls/hr IV .Q8H [facility] Last Admin: 02/10/21 04:42 Dose: 125 mls/hr Documented by: Piperacillin Sod/Tazobactam (Sod 3.375 gm/ Sodium Chloride) 100 mls @ 25 mls/hr IV Q8H [facility] Ondansetron HCl (Ondansetron Odt 4 Mg Tablet) 4 mg TL Q6HR PRN PRN Reason: Nausea / Vomiting Ondansetron HCl (Ondansetron 4 Mg/2 Ml Vial) 4 mg IVP Q6HR PRN PRN Reason: Nausea / Vomiting Oxycodone HCl (Oxycodone 5 Mg Tablet) 5 mg PO Q4HR PRN PRN Reason: Pain 5 to 7 Oxycodone HCl (Oxycodone 5 Mg Tablet) 10 mg PO Q4HR PRN PRN Reason: Pain 8 to 10 Prochlorperazine Edisylate (Prochlorperazine 10 Mg/2 Ml Vial) 10 mg IVP Q6HR PRN PRN Reason: Nausea / Vomiting Sodium Chloride (Sodium Chloride Flush 0.9% 10 Ml Syringe) 10 ml IVP PRN PRN PRN Reason: NEEDED PER PROVIDER ORDERS Sodium Chloride (Sodium Chloride Flush 0.9% 10 Ml Syringe) 10 ml IVP 0100,0900,1700 [facility] Last Admin: 02/10/21 08:39 Dose: Not Given Documented by: Acyclovir 400 mg PO DAILY PRN 11/10/18 Albuterol 90 mcg IH DAILY PRN 11/10/18 Amoxicillin 2,000 mg PO ONCE PRN 11/10/18 Atenolol [Tenormin] 50 mg PO BID 11/10/18 Benzonatate 100 mg PO DAILY PRN 11/10/18 Calcium Carbonate/Vitamin D3 [Calcium 600-Vit D3 800 Tablet] 2 tab PO DAILY 11/10/18 Cyclobenzaprine [Flexeril] 10 mg PO DAILY PRN 11/10/18 Felodipine [Felodipine ER] 5 mg PO DAILY 11/10/18 Indapamide 1.25 mg PO DAILY 11/10/18 Losartan Potassium 100 mg PO DAILY 11/10/18 Meclizine [Antivert] 2 tab PO DAILY PRN 11/10/18 Metformin HCl [Fortamet] 500 mg PO BID 11/10/18 Potassium Chloride [Micro-K] 10 meq PO DAILY 11/10/18 Rizatriptan Benzoate [Rizatriptan] 10 mg PO DAILY PRN 11/10/18 raNITIdine [Zantac] 150 mg PO BID 11/10/18 Allergies/Adverse Reactions: Allergies Allergy/AdvReac Type Severity Reaction Status Date / Time No Known Drug Allergies Allergy Verified 02/10/21 00:37 Anes History & Medical History - Anesthetic History Anesthesia Complications: reports: Slow wake-up Family history of Anesthesia Complications: Denies Family history of Malignant Hyperthermia: Denies - Medical History Cardiovascular: reports: Hypertension, Valve disorder (mild aortic steno sis/regurg, echo reviewed) Pulmonary: reports: None, Pneumonia, Other (history of URI, none recent) Gastrointestinal: reports: GERD, Other (mild nausea) Urinary: reports: None Neuro: reports: None, Migraines Musculoskeletal: reports: Other (reported left shoulder impingement) Endocrine/Autoimmune: reports: None, Other (prediabetic) Blood Disorders: reports: None Skin: reports: None Smoking Status: Never smoker Psychosocial: reports: No issues indicated History of Cancer?: No Other Past Medical History: aortic stenosis - Surgical History Gynecologic: reports: Hysterectomy Dermatologic: reports: Skin cancer surgery Exam General: Alert, Oriented x3 Dental: Other (crowns, bridge) Mouth Openin Fingerbreadth Neck Mobility: Normal Mallampati classification: III Thyromental Distance: less than 4 cm Respiratory: Lungs clear, Normal breath sounds Cardiovascular: Regular rate Abdomen: Other (decreased) Extremities: No clubbing, No cyanosis, No edema, Normal pulses, No tenderness/swelling Plan Anesthesia Type: General Consent for Procedure(s) Verified and Reviewed: Yes Code Status: Attempt Resuscitation ASA classification: 2-Mild systemic disease Is this case an emergency?: No
[2021-02-10] MEDS: PIPERACILLIN/TAZOBACTAM 3.375 GM in SODIUM CHLORIDE 0.9% MINIBAG 100 ML IV SCH ×2 (11:48→19:07)
--- NOTE | 2021-02-10 12:09 | PHARMACY PROGRESS NOTE ---
- Best Possible Medication History Admit Date and Time: Processed by: Pharmacy Medication History completed: Yes Patient Interview: Completed Secondary Source(s): Pharmacy records, Insurance records As the person ultimately responsible for medication therapy, providers are able to order a medication from an existing home medication list in [facility] via the "Reconcile Routine" prior to Confirmation of that medication by academic support coordinator. Such practice is discouraged except when the physician, in their clinical judgment, deems that a medical need exists for a medication without regard to previous use.
[2021-02-10] MEDS ORDERED: LIDOCAINE MPF 2%-EPI 1:200000 20 ML VIAL ONE (13:32)
[2021-02-10] MEDS ORDERED: BUPIVACAINE 0.25% PF 30 ML VIAL ONE (13:33)
[2021-02-10] MEDS ORDERED: LIDOCAINE-MPF 2% 5 ML VIAL ONE (15:46)
[2021-02-10] MEDS ORDERED: MIDAZOLAM 2 MG/2 ML VIAL ONE (15:46)
[2021-02-10] MEDS ORDERED: fentaNYL 100 MCG/2 ML VIAL ONE ×2 (15:46→17:14)
[2021-02-10] MEDS ORDERED: PROPOFOL 200 MG/20 ML VIAL IVP ONE (15:46)
[2021-02-10] MEDS ORDERED: ROCURONIUM 50 MG/5 ML VIAL ONE (15:46)
[2021-02-10] MEDS ORDERED: BUPIVACAINE 0.25% PF 30 ML VIAL SUBQ ONE (16:29)
[2021-02-10] MEDS ORDERED: DEXAMETHASONE 4 MG/ML VIAL ONE (16:35)
[2021-02-10] MEDS ORDERED: SUGAMMADEX 200 MG/2 ML VIAL IVP ONE (17:09)
[2021-02-10] MEDS ORDERED: LACTATED RINGERS 1,000 ML IV ONE (17:25)
--- NOTE | 2021-02-10 17:32 | OPERATIVE REPORT ---
Operative Report - General Procedure Date: 02/10/21 Planned Procedure: laparoscopic appendectomy Pre-Op Diagnosis: appendicitis Procedure Performed: laparoscopic appendectomy Post Op Diagnosis: ruptured appendix - Procedure Note Primary Surgeon: david lundberg Anesthesia Technique: General ET tube, Local Pathology: appendix Estimated Blood Loss (mL): 10 Drain/Tube Type: Jakub drain Indications: appendicitis Findings: ruptured appendix fibrinous exudate pus in pelvis inflammatory response small bowel Complications: none - Other Other Information/Narrative: The patient was properly identified brought to the operating room and placed in supine position. The patient was previously given antibiotics. Sequential compression devices were placed. General endotracheal anesthesia was induced. The patient was prepped and draped in a sterile fashion. Local anesthetic was given to incision areas. An infraumbilical incision was made in and proceeded down to the fascia. The fascia was incised lifted upwards and abdomen entered with a Veress needle. CO2 was insufflated to a pressure of 15. A 12 mm trocar was placed with 30 degree scope. There was no evidence of injury from Veress needle or trocar placement. Under direct vision a 5 mm trocar was placed suprapubic and a 5 mm trocar was placed in the right upper quadrant. Appendix was identified and retracted anteriorly. Peritoneal attachments were taken down with careful use of cautery. Appendix was mobilized more anterior. A plane was then created between the mesoappendix and the appendix at the cecum. Appendix was divided with an Endo MAIN intestinal load to include up a small portion of the cecum. The mesoappendix was then divided with an Endo MAIN vascular load. There was secure closure at the cecum and hemostasis was assured. The appendix was brought out. The abdomen was thoroughly irrigated and hemostasis again assured. She had green pus in her pelvis at the start of the procedure. Fibrinous exudate was present in the right lower quadrant. She had rupture of her appendix. She had inflammatory response of her small bowel with near hemorrhagic change and edema. Bowel was viable. At the end of the procedure the small bowel appeared improved. Drain was placed in the right gutter right pelvis and brought out suprapubically and secured with a 3-0 nylon. Trochars were removed under direct vision. Fascia at the infraumbilical site was closed with a running 0 Vicryl suture. Subcutaneous tissue was irrigated and skin reapproximated with buried interrupted 4-0 Monocryl. Dressings were applied. The patient tolerated the procedure well was awakened and brought to recovery in good condition.
[2021-02-10] MEDS ORDERED: fentaNYL 100 MCG/2 ML VIAL IVP PRN (17:34)
[2021-02-10] MEDS ORDERED: NALOXONE 0.4 MG/ML VIAL IVP PRN (17:34)
[2021-02-10] MEDS ORDERED: ePHEDrine 50 MG/ML VIAL IVP PRN (17:34)
[2021-02-10] MEDS ORDERED: METOCLOPRAMIDE 10 MG/2 ML VIAL IVP PRN (17:34)
[2021-02-10] MEDS ORDERED: ATROPINE ABBOJECT 1 MG/10 ML SYRINGE IVP PRN (17:34)
[2021-02-10] MEDS ORDERED: MORPHINE 2 MG/ML CARPUJECT IVP PRN (17:34)
[2021-02-10] MEDS ORDERED: LACTATED RINGERS 1,000 ML IV SCH (18:00)
--- NOTE | 2021-02-10 18:40 | ANESTHESIA POST OP EVALUATION ---
Anesthesia Post Eval - Post Anesthesia Eval Vitals: Last Vital Signs Temp 37.6 C 02/10/21 17:57 Pulse 78 02/10/21 17:57 Resp 14 02/10/21 17:57 BP 143/80 H 02/10/21 17:57 Pulse Ox 96 02/10/21 17:57 CV Function Including HR & BP: Stable Pain Control: Satisfactory Nausea & Vomiting: Negative Mental Status: Baseline Respiratory Status: Airway Patent Hydration Status: Satisfactory Anesthesia Complications: None
[2021-02-10] MEDS: atenoloL 25 MG TABLET PO SCH (21:23)
[2021-02-11] MEDS: SODIUM CHLORIDE FLUSH 0.9% 10 ML SYRINGE IVP SCH ×4 (01:16→23:58)
[2021-02-11] MEDS: PIPERACILLIN/TAZOBACTAM 3.375 GM in SODIUM CHLORIDE 0.9% MINIBAG 100 ML IV SCH ×3 (02:56→19:05)
[2021-02-11] MEDS: HYDROcod/ACETAM 5/325 MG TABLET PO PRN ×6 (04:57→23:56)
[2021-02-11] MEDS: SODIUM CHLORIDE 0.9% 1,000 ML IV SCH ×3 (05:14→23:57)
[2021-02-11] MEDS: LOSARTAN 50 MG TABLET PO SCH (11:05)
[2021-02-11] MEDS: atenoloL 25 MG TABLET PO SCH ×2 (11:05→21:06)
--- NOTE | 2021-02-11 11:25 | PROVIDER PROGRESS NOTE ---
Subjective - General Procedure Date: 02/10/21 Post Op Days: 1 Procedure Performed: Lap appendectomy for perforated appendicitis - Review of Systems Wound/Incisions: positive: Dressing dry and intact Drain Type: SIVA Drain Output Description: serosang General: positive: No symptoms Gastrointestinal: positive: Abdominal pain (Sore in right abdomen if doesnt take pain meds. No flatus or BM yet.) Objective - Patient Data Vital Signs: Vital Signs x48h Temp Pulse Resp BP Pulse Ox 02/11/21 08:21 37.1 C 58 L 18 112/61 93 Weight: Weight 02/09/21 02/10/21 02/11/21 23:59 23:59 23:59 Weight (kg) 80.5 kg Intake & Output: Intake and Output Totals x24h 02/09/21 02/10/21 02/11/21 23:59 23:59 23:59 Intake Total 3272.917 2684.167 Output Total 100 25 Balance 3172.917 2659.167 - Lab Results Lab Results: 02/10/21 00:55 02/10/21 00:55 - Current Medications Current Medications: Current Medications Generic Name Dose Route Start Last Admin Trade Name Freq PRN Reason Stop Dose Admin Hydrocodone Bitart/Acetaminophen 1 tab 02/10/21 03:25 02/11/21 11:17 Hydrocod/Acetam 5/325 Mg Tablet PO 1 tab Q4HR PRN Administration Pain 5 to 7 Atenolol 50 mg 02/10/21 21:00 02/11/21 11:05 Atenolol 25 Mg Tablet PO 25 mg BID EVA Administration Sodium Chloride 1,000 mls @ 125 mls/hr 02/10/21 04:00 02/11/21 11:16 Normal Saline 0.9% IV 0 mls/hr .Q8H EVA Infusion Piperacillin Sod/Tazobactam 100 mls @ 25 mls/hr 02/10/21 11:00 02/11/21 11:05 Sod 3.375 gm/ Sodium Chloride IV 25 mls/hr Q8H EVA Administration Losartan Potassium 50 mg 02/11/21 09:00 02/11/21 11:05 Losartan 50 Mg Tablet PO 50 mg DAILY EVA Administration Ondansetron HCl 4 mg 02/10/21 03:25 02/10/21 15:16 Ondansetron 4 Mg/2 Ml Vial IVP 4 mg Q6HR PRN Administration Nausea / Vomiting Sodium Chloride 10 ml 02/10/21 09:00 02/11/21 11:06 Sodium Chloride Flush 0.9% 10 Ml Syringe IVP Not Given 0100,0900,1700 EVA Impression/Plan - Problem List Problem List: POD#1 s/p lap appendectomy for perforated appendicitis. On Zosyn. Plan: Continue Zosyn. Clear liquid diet, ambulate.
[2021-02-12] MEDS: PIPERACILLIN/TAZOBACTAM 3.375 GM in SODIUM CHLORIDE 0.9% MINIBAG 100 ML IV SCH ×3 (02:56→19:50)
[2021-02-12] MEDS: HYDROcod/ACETAM 5/325 MG TABLET PO PRN ×2 (04:12→08:11)
[2021-02-12] MEDS: SODIUM CHLORIDE 0.9% 1,000 ML IV SCH ×2 (08:10→23:10)
[2021-02-12] MEDS: LOSARTAN 50 MG TABLET PO SCH (08:12)
[2021-02-12] MEDS: atenoloL 25 MG TABLET PO SCH ×2 (08:12→21:18)
[2021-02-12] MEDS: SODIUM CHLORIDE FLUSH 0.9% 10 ML SYRINGE IVP SCH ×2 (08:13→17:30)
[2021-02-12] MEDS: polyethylene glycoL 3350 17 GM PACKET PO SCH (08:13)
--- NOTE | 2021-02-12 12:06 | PROVIDER PROGRESS NOTE ---
Subjective - General Admit Date: 02/11/21 Procedure Date: 02/10/21 Post Op Days: 2 Procedure Performed: Lap appendectomy for perforated appendicitis - Review of Systems Wound/Incisions: positive: Dressing dry and intact Drain Type: SIVA Drain Output Description: serosang General: positive: No symptoms Gastrointestinal: positive: Abdominal pain (Sore in right abdomen if doesnt take pain meds. No flatus or BM yet.) Objective - Patient Data Reviewed Vital Signs: Yes Vital Signs: Vital Signs x48h Temp Pulse Resp BP Pulse Ox 02/12/21 07:33 36.8 C 60 17 167/77 H 92 Weight: Weight 02/10/21 02/11/21 02/12/21 23:59 23:59 23:59 Weight (kg) 80.5 kg Intake & Output: Intake and Output Totals x24h 02/10/21 02/11/21 02/12/21 23:59 23:59 23:59 Intake Total 3272.917 5230.000 1790 Output Total 100 200 265 Balance 3172.917 5030.000 1525 - Lab Results Lab Results: 02/10/21 00:55 02/10/21 00:55 - Current Medications Current Medications: Current Medications Generic Name Dose Route Start Last Admin Trade Name Freq PRN Reason Stop Dose Admin Hydrocodone Bitart/Acetaminophen 1 tab 02/10/21 03:25 02/12/21 08:11 Hydrocod/Acetam 5/325 Mg Tablet PO 1 tab Q4HR PRN Administration Pain 5 to 7 Atenolol 50 mg 02/10/21 21:00 02/12/21 08:12 Atenolol 25 Mg Tablet PO 50 mg BID EVA Administration Sodium Chloride 1,000 mls @ 125 mls/hr 02/10/21 04:00 02/12/21 08:10 Normal Saline 0.9% IV 125 mls/hr .Q8H EAV Administration Piperacillin Sod/Tazobactam 100 mls @ 25 mls/hr 02/10/21 11:00 02/12/21 11:43 Sod 3.375 gm/ Sodium Chloride IV 25 mls/hr Q8H EVA Administration Losartan Potassium 50 mg 02/11/21 09:00 02/12/21 08:12 Losartan 50 Mg Tablet PO 50 mg DAILY EVA Administration Ondansetron HCl 4 mg 02/10/21 03:25 02/10/21 15:16 Ondansetron 4 Mg/2 Ml Vial IVP 4 mg Q6HR PRN Administration Nausea / Vomiting Polyethylene Glycol 17 gm 02/12/21 09:00 02/12/21 08:13 Polyethylene Glycol 3350 17 Gm Packet PO 17 gm DAILY EVA Administration Sodium Chloride 10 ml 02/10/21 09:00 02/12/21 08:13 Sodium Chloride Flush 0.9% 10 Ml Syringe IVP Not Given 0100,0900,1700 EVA ABX Reporting Has patient been on IV antibiotics over the past 48 hours?: Yes Impression/Plan - Problem List Problem List: S/p lap appendectomy for perforated appendicitis Drain removed today- output scant straw colored fluid Advance diet to regular Continue IV Zosyn for perforated appendicitis CBC ordered for tomorrow AM
[2021-02-13] MEDS: SODIUM CHLORIDE FLUSH 0.9% 10 ML SYRINGE IVP SCH ×2 (01:24→08:22)
[2021-02-13] MEDS: PIPERACILLIN/TAZOBACTAM 3.375 GM in SODIUM CHLORIDE 0.9% MINIBAG 100 ML IV SCH ×2 (03:26→11:30)
[2021-02-13 05:48] LABS: BASOPHILS % (AUTO) 0.7 %; EOSINOPHILS # (AUTO) 0.1 10^3/uL (0.0-0.7); EOSINOPHILS % (AUTO) 2.3 %; HCT - HEMATOCRIT 36.1 % (37.0-47.0); LYMPHOCYTES # (AUTO) 1.3 10^3/uL (1.5-3.5); LYMPHOCYTES % (AUTO) 21.5 %; MEAN CORPUSCULAR HEMOGLOBIN 31.4 pg (27.0-31.0); MEAN CORPUSCULAR HGB CONC 33.2 g/dL (32.0-36.0); MEAN CORPUSCULAR VOLUME 94.5 fL (81.0-99.0); MONOCYTES # (AUTO) 0.4 10^3/uL (0.0-1.0); MONOCYTES % (AUTO) 6.6 %; NEUTROPHILS # (AUTO) 4.2 10^3/uL (1.5-6.6); NEUTROPHILS % (AUTO) 68.6 %; PLT - PLATELET COUNT 231 10^3/uL (130-450); RED BLOOD COUNT 3.82 10^6/uL (4.20-5.40); RED CELL DISTRIBUTION WIDTH 13.4 % (12.0-15.0); WHITE BLOOD COUNT 6.1 x10^3/uL (4.8-10.8)
[2021-02-13] MEDS: SODIUM CHLORIDE 0.9% 1,000 ML IV SCH (07:05)
[2021-02-13] MEDS: polyethylene glycoL 3350 17 GM PACKET PO SCH (08:18)
[2021-02-13] MEDS: atenoloL 25 MG TABLET PO SCH (08:19)
[2021-02-13] MEDS: LOSARTAN 50 MG TABLET PO SCH (08:19)
--- NOTE | 2021-02-13 14:15 | Discharge Plan ---
Discharge Plan Problem Reviewed?: Yes Disposition: Home, Self Care Condition: Stable Prescriptions: HYDROcod/ACETAM 5/325 [[place] 5/325] 1 tab PO Q4HR PRN #14 tablet PRN Reason: Pain Ondansetron Odt [Zofran Odt] 4 mg TL Q6HR PRN #10 tablet PRN Reason: Nausea / Vomiting Amox/Clav 875/125 [Augmentin 875/125 Tab] 1 tablet PO Q12H 4 Days #8 tablet Diet: Regular Activity Restrictions: 10 pound lifting limit Shower Restrictions: No Driving Restrictions: Yes (No while needing pain medication) No Smoking: If you smoke, Please STOP! Call for help. Follow-up with: Tatianna Garcia PA-C [Primary Care Provider] - Thor Villela MD [Provider Admit Priv/Credential] -
--- NOTE | 2021-02-13 14:16 | DISCHARGE SUMMARY ---
"Discharge Summary Admit Date: 03/13/21 Discharge Date: 02/13/21 Discharging Provider: Nu Primary Care Provider: ALBERTO Garcia Code Status: Attempt Resuscitation Condition at Discharge: Stable Discharge Disposition: 01 Home, Self Care - DIAGNOSES Admission Diagnoses: Acute appendicitis Discharge Diagnoses with Status of Each Condition: Acute appendicitis - resolved - HPI History of Present Illness: Arminda is a 66-year-old lady admitted to the emergency room on the with acute abdominal pain. - CONSULTS | PROCEDURES Procedures: Laparoscopy with appendectomy - HOSPITAL COURSE Hospital Course: She was found to have appendicitis and taken to the operating room for urgent laparoscopy. She was found to have perforated appendicitis but the operation was otherwise uneventful. She was admitted to Med/Surg for supportive care and IV antibiotic therapy. Today she is tolerating a regular diet and is not longer requiring pain medications - ALLERGIES Allergies/Adverse Reactions: Allergies Allergy/AdvReac Type Severity Reaction Status Date / Time No Known Drug Allergies Allergy Verified 02/10/21 00:37 - MEDICATIONS Home Medications: Ambulatory Orders Medication Instructions Recorded Confirmed Acyclovir 400 mg PO TID PRN 11/10/18 02/10/21 Atenolol [Tenormin] 50 mg PO BID 11/10/18 02/10/21 Calcium Carbonate/Vitamin D3 2 tab PO DAILY 11/10/18 02/10/21 [Calcium 600-Vit D3 800 Tablet] Felodipine [Felodipine ER] 10 mg PO DAILY 11/10/18 02/10/21 Losartan Potassium 100 mg PO DAILY 11/10/18 02/10/21 Metformin HCl [Fortamet] 500 mg PO DAILY 11/10/18 02/10/21 Rizatriptan Benzoate [Rizatriptan] 10 mg PO DAILY PRN 11/10/18 02/10/21 Acetaminophen [Tylenol] 650 mg PO Q4HR PRN tablet 02/13/21 Amox/Clav 875/125 [Augmentin 1 tablet PO Q12H 4 Days #8 tablet 02/13/21 875/125 Tab] HYDROcod/ACETAM 5/325 [[place] 5/325] 1 tab PO Q4HR PRN #14 tablet 02/13/21 Ondansetron Odt [Zofran Odt] 4 mg TL Q6HR PRN #10 tablet 02/13/21 polyethylene glycoL 3350 [Miralax] 17 gm PO DAILY packet 02/13/21 - PHYSICAL EXAM AT DISCHARGE General Appearance: positive: No acute distress, Alert, Mild distress Eyes Bilateral: positive: Normal inspection, PERRL, EOMI Respiratory: positive: No respiratory distress, Breath sounds nml Cardiovascular: positive: Regular rate & rhythm Peripheral Pulses: positive: 0 Abdomen: positive: Nml bowel sounds, Tenderness (appropriately tender ), Other (Wounds are all clean and dry and well approximated) Neurologic/Psychiatric: positive: Oriented x3 - LABS Result Diagrams: 02/13/21 05:32 02/10/21 00:55 - QUALITY (Female Hip Fx Only) Was patient sent home on osteoporosis medication?: No - FOLLOW UP Follow Up: Dr. Villela in 2 weeks - TIME SPENT Time Spent in Discharge (Minutes): 15"
[2021-02-13 14:42] VITALS: BP 175/86
--- NOTE | 2021-02-14 15:32 | HISTORY & PHYSICAL EXAMINATION ---
Chief Complaint - Chief Complaint Chief Complaint: Abdominal pain History of Present Illness - Admitted From Admitted From:: ED - History Obtained From Records Reviewed: yes History obtained from: pt Exam Limitations: none - History of Present Illness HPI Comment/Other: Abdominal pain localizing to right lower abdomen for nearly 2 days. History - Past Medical History Cardiovascular: reports: Hypertension, Valve disorder (mild aortic stenosis/regurg, echo reviewed) Respiratory: reports: None, Pneumonia, Other (history of URI, none recent) Neuro: reports: None, Migraines Endocrine/Autoimmune: reports: None, Other (prediabetic) GI: reports: GERD, Other (mild nausea) : reports: None Musculoskeletal: reports: Other (reported left shoulder impingement) Derm: reports: None Other Past Medical History: aortic stenosis - Past Surgical History /BUNG REMOVER: reports: Hysterectomy Derm: reports: Skin cancer surgery Meds/Allgy - Home Medications Home Medications: Ambulatory Orders Medication Instructions Recorded Confirmed Acyclovir 400 mg PO TID PRN 11/10/18 02/10/21 Atenolol [Tenormin] 50 mg PO BID 11/10/18 02/10/21 Calcium Carbonate/Vitamin D3 2 tab PO DAILY 11/10/18 02/10/21 [Calcium 600-Vit D3 800 Tablet] Felodipine [Felodipine ER] 10 mg PO DAILY 11/10/18 02/10/21 Losartan Potassium 100 mg PO DAILY 11/10/18 02/10/21 Metformin HCl [Fortamet] 500 mg PO DAILY 11/10/18 02/10/21 Rizatriptan Benzoate [Rizatriptan] 10 mg PO DAILY PRN 11/10/18 02/10/21 Acetaminophen [Tylenol] 650 mg PO Q4HR PRN tablet 02/13/21 Amox/Clav 875/125 [Augmentin 1 tablet PO Q12H 4 Days #8 tablet 02/13/21 875/125 Tab] HYDROcod/ACETAM 5/325 [[place] 5/325] 1 tab PO Q4HR PRN #14 tablet 02/13/21 Ondansetron Odt [Zofran Odt] 4 mg TL Q6HR PRN #10 tablet 02/13/21 polyethylene glycoL 3350 [Miralax] 17 gm PO DAILY packet 02/13/21 - Allergies Allergies/Adverse Reactions: Allergies Allergy/AdvReac Type Severity Reaction Status Date / Time No Known Drug Allergies Allergy Verified 02/10/21 00:37 Review of Systems - Other Findings Other Findings: nausea recently and as above otherwise unremarkable Exam - Vital Signs Reviewed Vital Signs: Yes - Physical Exam General Appearance: positive: No acute distress, Alert Eyes Bilateral: positive: PERRL, EOMI, No scleral icterus ENT: positive: No signs of dehydration Neck: positive: No JVD Respiratory: positive: No respiratory distress, Breath sounds nml Cardiovascular: positive: Regular rate & rhythm Abdomen: positive: No distention, Tenderness (rlq) Neurologic/Psychiatric: positive: Oriented x3 Conclusion/Plan - Problem List (1) Appendicitis Conclusion/Plan: plan appendectomy. parq held and consent obtained Qualifiers: Appendicitis type: acute appendicitis Acute appendicitis type: with localized peritonitis Appendicitis gangrene presence: without gangrene Appendicitis perforation presence: without perforation Appendicitis abscess presence: without abscess Qualified Code(s): K35.30 - Acute appendicitis with localized peritonitis, without perforation or gangrene - Lab Results Fish Bones: 02/13/21 05:32 02/10/21 00:55
== END 2021-02-13 15:19 | disposition home or self-care (01) | DRG 373 ==
LOC: ED 00:26 → SDS 03:25 → MS2 03:25 → SDS 02-11 14:49 → MS2 02-11 14:50
PROVIDERS: ADMIT Surgery; ATTEND Surgery
PROC: 0DTJ4ZZ Resection of Appendix, Percutaneous Endoscopic Approach (ICD-10-PCS; principal; 2021-02-10 15:45)
DX: K35.32 Acute appendicitis with perforation, localized peritonitis, and gangrene, without abscess (principal); I35.0 Nonrheumatic aortic (valve) stenosis; Z20.822 Contact with and (suspected) exposure to COVID-19; I10 Essential (primary) hypertension; R73.03 Prediabetes
CPT/HCPCS: 36415; 44970; 74177; 80053; 81003; 83690; 85025; 87631; 96374; 99284; 99285; A9270; J1170; J7120; Q9967; 0202U; 81001; 87086

== ENCOUNTER 2021-03-03 15:00 | Outpatient (CLI) | payer MEDICARE, OTHER | END 2021-03-03 23:59 | disposition home or self-care (01) | LOC: LAB 15:00 | PROVIDERS: ATTEND Physician Assistant Medical | DX: J06.9 Acute upper respiratory infection, unspecified (principal); Z20.822 Contact with and (suspected) exposure to COVID-19 ==

== ENCOUNTER 2021-05-01 08:00 | Outpatient (CLI) | payer MEDICARE, OTHER ==
[2021-05-01 11:54] LABS: CALCIUM 9.5 mg/dL (8.5-10.3); CREATININE 0.9 mg/dL (0.4-1.0); POTASSIUM 3.5 mmol/L (3.5-5.0)
== END 2021-05-01 23:59 ==
LOC: LAB.WCP 08:00
PROVIDERS: ATTEND Physician Assistant Medical
DX: R73.03 Prediabetes (principal)
CPT/HCPCS: 36415; 80048

== ENCOUNTER 2021-05-04 14:48 | Outpatient (CLI) | payer MEDICARE, OTHER ==
--- NOTE | 2021-05-05 10:00 | Mammography Report ---
BILATERAL DIGITAL SCREENING MAMMOGRAM 3D/2D: 05/04/2021 CLINICAL: Family history of breast cancer. Routine screening. Comparison is made to exams dated: 05/04/2020 mammogram, 04/21/2019 mammogram, 04/02/2018 mammogram, mammogram, 03/13/2016 mammogram, and 02/23/2015 mammogram - [facility]. T he tissue of both breasts is heterogeneously dense. This may lower the sensitivity of mammography. No significant masses, calcifications, or other findings are seen in either breast. There has been no significant interval change. IMPRESSION: NEGATIVE There is no mammographic evidence of malignancy. A 1 year screening mammogram is recommended. This exam was interpreted at Station ID: [id number]. NOTE: For mammograms, a report in lay terms will be sent to the patient. Approximately 15% of breast malignancies will not be visualized mammographically. In the management of a palpable breast mass, a negative mammogram must not discourage biopsy of a clinically suspicious lesion. Electronically Signed By: Nam Rothman M.D. ddp/penmatias:05/04/2021 15:37:35 ACR BI-RADS Category 1: Negative 3341F PARENCHYMAL PATTERN: (D) - The breast(s) demonstrate(s) heterogeneously dense fibroglandular karlee luo. BI-RADS CATEGORY: (1) - 1 RECOMMENDATION: (ANNUAL) - Recommend routine annual screening mammography. [id number] 1 year screening LATERALITY: (B)
== END 2021-05-04 14:49 | disposition home or self-care (01) ==
LOC: DI.N 14:48
DX: Z12.31 Encounter for screening mammogram for malignant neoplasm of breast (principal); Z80.3 Family history of malignant neoplasm of breast

== ENCOUNTER 2021-05-14 08:00 | Outpatient (CLI) | payer OTHER | END 2021-05-14 23:59 | LOC: LAB 08:00 | PROVIDERS: ATTEND Family Medicine | DX: U07.1 COVID-19 (principal) ==

== ENCOUNTER 2021-09-12 11:46 | Outpatient (CLI) | payer OTHER ==
--- NOTE | 2021-09-12 13:36 | XRAY Report ---
PROCEDURE: Chest 2 View X-Ray INDICATIONS: ACUTE LOWER RESPIRATORY INFECTION TECHNIQUE: 2 view(s) of the chest. COMPARISON: 08/07/2018 FINDINGS: Surgical changes and devices: None. Lungs and pleura: No pleural effusions or pneumothorax. Mild streaky airspace opacities noted in the left lower lobe. No focal consolidation.. Mediastinum: Mediastinal contours are normal. Heart size is enlarged. Bones and chest wall: No suspicious bony abnormalities. Soft tissues appear unremarkable. IMPRESSION: Mild streaky left lower lobe airspace opacities which may represent atelectasis and/or developing air space disease. Follow-up imaging recommended to document return to baseline exam. No focal consolidat ions. Mild cardiomegaly. Reviewed by: Lorenzo Cabrera MD on 09/12/2021 1:35 PM PDT Approved by: Lorenzo Cabrera MD on 09/12/2021 1:35 PM PDT Station ID: [id number]
== END 2021-09-12 11:47 | disposition home or self-care (01) ==
LOC: DI.N 11:46
PROVIDERS: ATTEND Nurse Practitioner Family
DX: J22 Unspecified acute lower respiratory infection (principal); I51.7 Cardiomegaly

== ENCOUNTER 2022-01-24 08:00 | Outpatient (CLI) | payer OTHER | END 2022-01-24 23:59 | disposition home or self-care (01) | LOC: LAB.N 08:00 | PROVIDERS: ATTEND Physician Assistant | DX: Z12.11 Encounter for screening for malignant neoplasm of colon (principal) | CPT/HCPCS: 82270 ==

== ENCOUNTER 2022-03-21 07:54 | Day surgery (SDC) | payer MEDICARE, OTHER ==
[2022-03-21] MEDS ORDERED: LACTATED RINGERS 1,000 ML IV ONE ×2 (08:45→11:16)
--- NOTE | 2022-03-21 09:23 | ANESTHESIA ---
Pre-Anesthesia VS, & Labs - Diagnosis bloody/mucous stools - Procedure colonoscopy Vital Signs: Temp Pulse Resp BP Pulse Ox O2 Flow Rate 36.4 C L 67 13 144/90 H 97 03/21/22 08:20 03/21/22 08:20 03/21/22 08:20 03/21/22 08:20 03/21/22 08:20 Height: 5 ft 5 in Weight (kg): 77 kg Body Mass Index: 28.2 BMI Classification: Overweight - NPO >8 hours - Is Patient ?: No - Lab Results Current Lab Results: Laboratory Tests 03/21/22 08:35: POC Whole Bld Glucose 126 H Home Medications and Allergies Home Medications: Ambulatory Orders Krill/Om-3/Dha/Epa/Phospho/Ast [Krill Oil 500 mg Softgel] 2,000 mg PO DAILY 03/20/22 Vit C/Multivit-Min/Elderberry [Emergen-C Elderberry Gummy] 1 ea PO DAILY 03/20/22 Atenolol [Tenormin] 50 mg PO BID 11/10/18 Calcium Carbonate/Vitamin D3 [Calcium 600-Vit D3 800 Tablet] 2 tab PO DAILY 11/10/18 Felodipine [Felodipine ER] 10 mg PO DAILY 11/10/18 Losartan Potassium 100 mg PO DAILY 11/10/18 Metformin HCl [Fortamet] 500 mg PO DAILY 11/10/18 Krill/Om-3/Dha/Epa/Phospho/Ast [Krill Oil 500 mg Softgel] 2,000 mg PO DAILY 03/20/22 Vit C/Multivit-Min/Elderberry [Emergen-C Elderberry Gummy] 1 ea PO DAILY 03/20/22 Allergies/Adverse Reactions: Allergies Allergy/AdvReac Type Severity Reaction Status Date / Time No Known Drug Allergies Allergy Verified 03/20/22 13:14 Anes History & Medical History - Anesthetic History Anesthesia Complications: reports: No previous complications - Medical History Cardiovascular: reports: Hypertension, Valve disorder (aortic sclerosis, no stenosis or regurgitation. Normal EF) Pulmonary: reports: Pneumonia (history of last year), Other Gastrointestinal: reports: GERD, Other Urinary: reports: None Neuro: reports: Migraines Musculoskeletal: reports: Other Endocrine/Autoimmune: reports: Other (pre-diabetic) Blood Disorders: reports: None Skin: reports: None Smoking Status: Never smoker Psychosocial: reports: No issues indicated History of Cancer?: Yes (basal cell) - Surgical History General: reports: Appendectomy Gynecologic: reports: Hysterectomy Dermatologic: reports: Skin cancer surgery Results - Echo Results Echo Results: Report reviewed Exam General: Alert, Oriented x3, Cooperative, No acute distress Dental: WNL Mouth Openin Fingerbreadth Neck Mobility: Normal Mallampati classification: III Thyromental Distance: 4-6 cm Mental/Cognitive Status: Alert/Oriented X3, Normal for patient Plan Anesthesia Type: General, Total IV Consent for Procedure(s) Verified and Reviewed: Yes Code Status: Attempt Resuscitation ASA classification: 2-Mild systemic disease Is this case an emergency?: No
[2022-03-21] MEDS ORDERED: PROPOFOL 500 MG/50 ML 500 MG/50 ML VIAL ONE (09:54)
[2022-03-21] MEDS ORDERED: LIDOCAINE-MPF 2% 5 ML VIAL ONE (10:32)
[2022-03-21] MEDS ORDERED: PROPOFOL 200 MG/20 ML VIAL IVP ONE (10:58)
[2022-03-21 12:01] VITALS: BP 144/79
--- NOTE | 2022-03-21 13:01 | ANESTHESIA POST OP EVALUATION ---
Anesthesia Post Eval - Post Anesthesia Eval Vitals: Last Vital Signs Temp 36.5 C 03/21/22 11:40 Pulse 58 L 03/21/22 11:40 Resp 16 03/21/22 11:40 BP 144/79 H 03/21/22 11:40 Pulse Ox 98 03/21/22 11:40 O2 Flow Rate CV Function Including HR & BP: Stable Pain Control: Satisfactory Nausea & Vomiting: Negative Mental Status: Baseline Respiratory Status: Airway Patent Hydration Status: Satisfactory Anesthesia Complications: None
== END 2022-03-21 07:55 | disposition home or self-care (01) ==
LOC: SDS 07:54
PROVIDERS: ATTEND Surgery
PROC: 0DBK8ZX Excision of Ascending Colon, Via Natural or Artificial Opening Endoscopic, Diagnostic (ICD-10-PCS; 2022-03-21)
PROC: 0DBN8ZX Excision of Sigmoid Colon, Via Natural or Artificial Opening Endoscopic, Diagnostic (ICD-10-PCS; 2022-03-21)
PROC: 0DBH8ZX Excision of Cecum, Via Natural or Artificial Opening Endoscopic, Diagnostic (ICD-10-PCS; principal; 2022-03-21 09:00)
DX: K92.1 Melena (principal); R19.5 Other fecal abnormalities; D12.2 Benign neoplasm of ascending colon; D12.5 Benign neoplasm of sigmoid colon; K64.8 Other hemorrhoids; I10 Essential (primary) hypertension; R73.03 Prediabetes; Z87.891 Personal history of nicotine dependence
CPT/HCPCS: 45380; 45385; J7120

== ENCOUNTER 2022-05-07 08:28 | Outpatient (CLI) | payer OTHER ==
--- NOTE | 2022-05-08 15:37 | Mammography Report ---
BILATERAL DIGITAL SCREENING MAMMOGRAM 3D/2D: 05/07/2022 CLINICAL: Family history of breast cancer. Routine screening. Comparison is made to exams dated: 05/04/2021 mammogram, 05/04/2020 mammogram, 04/21/2019 mammogram, mammogram, 04/01/2017 mammogram, and 03/13/2016 mammogram - [facility]. Both breasts are heterogeneously dense, which may obscure small masses (category c / 51-75% glandular tissue). There is a possible oval equal density asymmetry in the left breast central to the nipple middle dept h. This is more prominent and increased in size. No other significant masses, calcifications, or other findings are seen in either breast. IMPRESSION: INCOMPLETE: NEEDS ADDITIONAL IMAGING EVALUATION The possible oval equal density asymmetry in the left breast resembles fibroglandular tissue and is i ndeterminate. Additional views with possible ultrasound are recommended. Based on the Tyrer Cuzick model (a risk assessment model) the patients lifetime risk is 13.5% and he r 10 year risk is 7.6%. According to the ACR, ACS, and NCCN guidelines, an annual breast MRI exam luisa ng with mammogram is recommended if the patients lifetime risk is 20% or greater. This exam was interpreted at Station ID: [id number]. NOTE: For mammograms, a report in lay terms will be sent to the patient. Approximately 15% of breast malignancies will not be visualized mammographically. In the management of a palpable breast mass, a negative mammogram must not discourage biopsy of a clinically suspicious lesion. Electronically Signed By: Lorenzo Cabrera M.D. aty/:05/07/2022 09:53:22 ACR BI-RADS Category 0: Incomplete 3340F PARENCHYMAL PATTERN: (D) - The breast(s) demonstrate(s) heterogeneously dense fibroglandular parenchy ma. BI-RADS CATEGORY: (0) - 0 Mammo and [place] [id number] Immediate follow-up LATERALITY: (L)
== END 2022-05-07 08:29 | disposition home or self-care (01) ==
LOC: DI.N 08:28
DX: Z12.31 Encounter for screening mammogram for malignant neoplasm of breast (principal)

== ENCOUNTER 2022-05-07 08:33 | Outpatient (CLI) | payer OTHER ==
[2022-05-07 13:08] LABS: ALBUMIN 4.3 g/dL (3.2-5.5); ALBUMIN/GLOBULIN RATIO 1.2 (1.0-2.2); ALKALINE PHOSPHATASE 63 IU/L (42-121); ALT ALANINE AMINOTRANSFERASE 31 IU/L (10-60); AST ASPARTATE AMINOTRANSFERASE 22 IU/L (10-42); BILIRUBIN,TOTAL 0.8 mg/dL (0.2-1.0); BUN - BLOOD UREA NITROGEN 16 mg/dL (6-20); CALCIUM 9.4 mg/dL (8.5-10.3); CARBON DIOXIDE - CO2 29 mmol/L (21-32); CHLORIDE 102 mmol/L (101-111); CHOL/HDL RATIO 4.9 (<4.4); CHOLESTEROL 253 mg/dL; GFR - MDRD 55 (>89); GLUCOSE 100 mg/dL (70-100); HDL CHOLESTEROL 52 mg/dL; LDL CHOLESTEROL,CALCULATED 160 mg/dL; LDL/HDL RATIO 3.1 (<4.4); POTASSIUM 3.7 mmol/L (3.5-5.0); SODIUM 140 mmol/L (135-145); TOTAL PROTEIN 7.9 g/dL (6.7-8.2); TRIGLYCERIDES 205 mg/dL; VLDL CHOLESTEROL 41 mg/dL
== END 2022-05-07 08:34 | disposition home or self-care (01) ==
LOC: LAB.N 08:33
PROVIDERS: ATTEND Physician Assistant Medical
DX: E78.5 Hyperlipidemia, unspecified (principal)
CPT/HCPCS: 36415; 80053; 80061; 83721

== ENCOUNTER 2022-05-29 09:51 | Outpatient (CLI) | payer OTHER ==
--- NOTE | 2022-05-30 12:58 | Mammography Report ---
UNILATERAL LEFT DIGITAL DIAGNOSTIC MAMMOGRAM 3D/2D WITH SPOT COMPRESSION: 05/29/2022 CLINICAL: Patient returns today to evaluate a focal asymmetry in the left breast. Comparison is made to exams dated: 05/07/2022 mammogram, 05/04/2021 mammogram, 05/04/2020 mammogram, 04/21/2019 mammogram, 04/02/2018 mammogram, and 04/01/2017 mammogram - [facility]. The left breast is heterogeneously dense, which may obscure small masses (category c / 51-75% glandul ar tissue). The previously described possible oval equal density asymmetry in the left breast central to the nipp le middle depth is no longer seen and most likely is fibroglandular tissue. This is not seen in laura tional views and is consistent with summation artifact. No other significant masses or calcifications are seen in the breast. IMPRESSION: BENIGN The previously described asymmetry disperses with additional views and is consistent with summation a rtifact. There is no mammographic evidence of malignancy. A 1 year screening mammogram is recommended. Based on the Tyrer Cuzick model (a risk assessment model) the patients lifetime risk is 13.5% and he r 10 year risk is 7.6%. According to the ACR, ACS, and NCCN guidelines, an annual breast MRI exam luisa ng with mammogram is recommended if the patients lifetime risk is 20% or greater. Recommend initiating routine screening mammograms at age 40. Findings and recommendations were conveyed to the patient during today's evaluation. This exam was interpreted at Station ID: [id number]. NOTE: For mammograms, a report in lay terms will be sent to the patient. Approximately 15% of breast malignancies will not be visualized mammographically. In the management of a palpable breast mass, a negative mammogram must not discourage biopsy of a clinically suspicious lesion. Electronically Signed By: Lorenzo Cabrera M.D. aty/:05/29/2022 10:53:01 ACR BI-RADS Category 2: Benign Finding(s) 3342F PARENCHYMAL PATTERN: (D) - The breast(s) demonstrate(s) heterogeneously dense fibroglandular karlee luo. BI-RADS CATEGORY: (2) - 2 RECOMMENDATION: (ANNUAL) - Recommend routine annual screening mammography. [id number] 1 year screening LATERALITY: (B)
== END 2022-05-29 09:52 | disposition home or self-care (01) ==
LOC: DI 09:51
PROVIDERS: ATTEND Family Medicine
DX: R92.8 Other abnormal and inconclusive findings on diagnostic imaging of breast (principal)

== ENCOUNTER 2022-10-02 08:00 | Outpatient (CLI) | payer OTHER | END 2022-10-02 23:59 | disposition home or self-care (01) | LOC: LAB.N 08:00 | PROVIDERS: ATTEND Physician Assistant Medical | DX: A60.00 Herpesviral infection of urogenital system, unspecified (principal) | CPT/HCPCS: 87255 ==

== ENCOUNTER 2022-11-12 10:10 | Outpatient (CLI) | payer OTHER ==
[2022-11-12 12:33] LABS: ALBUMIN 4.4 g/dL (3.2-5.5); ALBUMIN/GLOBULIN RATIO 1.3 (1.0-2.2); ALKALINE PHOSPHATASE 72 IU/L (42-121); ALT ALANINE AMINOTRANSFERASE 30 IU/L (10-60); AST ASPARTATE AMINOTRANSFERASE 22 IU/L (10-42); BILIRUBIN,TOTAL 0.7 mg/dL (0.2-1.0); BUN - BLOOD UREA NITROGEN 14 mg/dL (6-20); CALCIUM 9.9 mg/dL (8.5-10.3); CARBON DIOXIDE - CO2 34 mmol/L (21-32); CHLORIDE 105 mmol/L (101-111); CHOL/HDL RATIO 4.6 (<4.4); CHOLESTEROL 216 mg/dL; CREATININE 0.9 mg/dL (0.6-1.3); GFR - MDRD 62 (>89); GLUCOSE 112 mg/dL (74-104); HDL CHOLESTEROL 47 mg/dL; LDL CHOLESTEROL,CALCULATED 127 mg/dL; LDL/HDL RATIO 2.7 (<4.4); SODIUM 143 mmol/L (135-145); TOTAL PROTEIN 7.7 g/dL (6.4-8.9); TRIGLYCERIDES 212 mg/dL (48-352); VLDL CHOLESTEROL 42 mg/dL
== END 2022-11-12 10:11 | disposition home or self-care (01) ==
LOC: LAB.N 10:10
PROVIDERS: ATTEND Physician Assistant Medical
DX: E78.5 Hyperlipidemia, unspecified (principal)
CPT/HCPCS: 36415; 80053; 80061; 83721

== ENCOUNTER 2022-12-07 10:06 | Emergency (ER) | payer OTHER ==
[2022-12-07] MEDS ORDERED: ONDANSETRON 4 MG/2 ML VIAL IVP STA (10:23)
[2022-12-07] MEDS ORDERED: SODIUM CHLORIDE 0.9% 1,000 ML IV STA (10:23)
[2022-12-07 10:35] LABS: BASOPHILS # (AUTO) 0.1 10^3/uL (0.0-0.1); BASOPHILS % (AUTO) 0.8 %; EOSINOPHILS # (AUTO) 0.1 10^3/uL (0.0-0.7); EOSINOPHILS % (AUTO) 0.8 %; HCT - HEMATOCRIT 45.6 % (37.0-47.0); HGB - HEMOGLOBIN 15.2 g/dL (12.0-16.0); LYMPHOCYTES # (AUTO) 1.2 10^3/uL (1.5-3.5); LYMPHOCYTES % (AUTO) 16.2 %; MEAN CORPUSCULAR HGB CONC 33.3 g/dL (32.0-36.0); MEAN CORPUSCULAR VOLUME 92.9 fL (81.0-99.0); MEAN PLATELET VOLUME 9.8 fL (7.9-10.8); MONOCYTES # (AUTO) 0.4 10^3/uL (0.0-1.0); MONOCYTES % (AUTO) 5.5 %; NEUTROPHILS # (AUTO) 5.8 10^3/uL (1.5-6.6); NEUTROPHILS % (AUTO) 76.4 %; PLT - PLATELET COUNT 282 10^3/uL (130-450); RED BLOOD COUNT 4.91 10^6/uL (4.20-5.40); RED CELL DISTRIBUTION WIDTH 13.1 % (12.0-15.0); WHITE BLOOD COUNT 7.6 x10^3/uL (4.8-10.8)
[2022-12-07 10:51] LABS: ALBUMIN 4.5 g/dL (3.2-5.5); ALBUMIN/GLOBULIN RATIO 1.3 (1.0-2.2); BILIRUBIN,TOTAL 0.7 mg/dL (0.2-1.0); CREATININE 0.8 mg/dL (0.6-1.3); POTASSIUM 3.4 mmol/L (3.5-4.5); TOTAL PROTEIN 7.9 g/dL (6.4-8.9)
[2022-12-07] MEDS ORDERED: METOPROLOL TARTRATE 50 MG TABLET PO STA (11:48)
[2022-12-07] MEDS ORDERED: HYDROmorphone 0.5 MG/0.5 ML SYRINGE IVP STA (11:48)
[2022-12-07] MEDS ORDERED: KETOROLAC 30 MG/ML VIAL IVP STA (11:48)
[2022-12-07 11:49] LABS: BILIRUBIN,URINE NEGATIVE (NEGATIVE); GLUCOSE, URINE (UA) NEGATIVE (NEGATIVE); KETONES,URINE (UA) NEGATIVE (NEGATIVE); LEUKOCYTE ESTERASE, URINE NEGATIVE (NEGATIVE); NITRITE,URINE NEGATIVE (NEGATIVE); OCCULT BLOOD,URINE NEGATIVE (NEGATIVE); PH,URINE 7.5 PH (5.0-7.5); PROTEIN,URINE NEGATIVE (NEGATIVE); UROBILINOGEN,URINE 0.2 (NORMAL) E.U./dL (NORMAL)
[2022-12-07 11:51] LABS: CLARITY,URINE CLEAR (CLEAR)
--- NOTE | 2022-12-07 12:42 | ED Physician Documentation ---
History of Present Illness - Stated complaint Stated Complaint: HIGH BP - Chief complaint Chief Complaint: General - History obtained from History obtained from: Patient - Additonal information Additional information: The patient comes to the emergency department chief complaint of dull frontal headache, and puffiness in her feet and hands for the last week or 2. She states she has been seen her PA Gwen Garcia because her blood pressures been running high over the last couple weeks and is higher than normal. The patient normally takes Medication for her blood pressure, and states that ALBERTO Garcia has been wanting to hold off on changing any doses to make sure whether the patient's pressure is going to remain high in a lasting fashion or whether this is just temporary. The patient states that previously, her pressure would run around 140/80, but lately, has been in the 170s to 190s over 90s. The patient denies any chest pain, shortness of breath, or stroke symptoms. She states she is otherwise PD PAST MEDICAL HISTORY - Past Medical History Past Medical History: Yes Cardiovascular: Hypertension, Valve disorder Respiratory: Pneumonia, Other Neuro: Migraines Endocrine/Autoimmune: Other GI: GERD, Other : None HEENT: None Psych: Other Musculoskeletal: Other Derm: None - Past Surgical History Past Surgical History: Yes General: Appendectomy /HAIR WORKER: Hysterectomy Derm: Skin cancer surgery - Present Medications Home Medications: Ambulatory Orders Medication Instructions Recorded Confirmed Atenolol [Tenormin] 50 mg PO BID 11/10/18 12/07/22 Calcium Carbonate/Vitamin D3 1,200 mg PO DAILY 11/10/18 12/07/22 [Calcium 600-Vit D3 800 Tablet] Felodipine [Felodipine ER] 10 mg PO DAILY 11/10/18 12/07/22 Losartan Potassium 100 mg PO DAILY 11/10/18 12/07/22 Metformin HCl [Fortamet] 500 mg PO DAILY 11/10/18 12/07/22 Krill/Om-3/Dha/Epa/Phospho/Ast 2,000 mg PO DAILY 03/20/22 12/07/22 [Krill Oil 500 mg Softgel] Cyclobenzaprine [Flexeril] 10 mg PO TID PRN 12/07/22 12/07/22 Meclizine [Antivert] 25 mg PO Q6H PRN 12/07/22 12/07/22 Rizatriptan Benzoate [Maxalt Civil Cadd Technician] 10 mg PO TID 12/07/22 12/07/22 - Allergies Allergies/Adverse Reactions: Allergies Allergy/AdvReac Type Severity Reaction Status Date / Time No Known Drug Allergies Allergy Verified 12/07/22 10:41 - Social History Does the pt smoke?: No Smoking Status: Never smoker Does the pt drink ETOH?: Yes ETOH Use: Wine Does the pt have substance abuse?: No PD ED PE NORMAL - Vitals Vital signs reviewed: Yes - General General: Alert and oriented X 3, No acute distress, Well developed/nourished - HEENT HEENT: Atraumatic, PERRL, EOMI, Moist mucous membranes - Neck Neck: Supple, no meningeal sign - Cardiac Cardiac: RRR, No murmur - Respiratory Respiratory: No respiratory distress, Clear bilaterally - Abdomen Abdomen: Soft, Non tender, Non distended - Derm Derm: Normal color, Warm and dry, No rash - Extremities Extremities: No deformity, No edema - Neuro Neuro: Alert and oriented X 3, 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, Normal speech - Psych Psych: Normal mood, Normal affect Results - Vitals Vitals: Vital Signs - 24 hr 12/07/22 12/07/22 12/07/22 10:13 11:36 13:21 Temperature 36.6 C Heart Rate 58 L 67 57 L Respiratory 20 21 17 Rate Blood Pressure 167/92 H 168/82 H 141/69 H O2 Saturation 100 98 99 Oxygen O2 Source Room air - Labs Labs: Laboratory Tests 12/07/22 12/07/22 12/07/22 10:27 10:27 10:27 WBC 7.6 RBC 4.91 Hgb 15.2 Hct 45.6 MCV 92.9 MCH 31.0 MCHC 33.3 RDW 13.1 Plt Count 282 MPV 9.8 Neut # (Auto) 5.8 Lymph # (Auto) 1.2 L Beckham # (Auto) 0.4 Eos # (Auto) 0.1 Baso # (Auto) 0.1 Absolute Nucleated RBC 0.00 Nucleated RBC % 0.0 Sodium 141 Potassium 3.4 L Chloride 103 Carbon Dioxide 31 Anion Gap 7.0 BUN 12 Creatinine 0.8 Estimated GFR (MDRD) 71 L Glucose 125 H Calcium 10.0 Total Bilirubin 0.7 AST 21 ALT 27 Alkaline Phosphatase 80 Total Protein 7.9 Albumin 4.5 Globulin 3.4 Albumin/Globulin Ratio 1.3 Lipase 65 TSH 1.30 Urine Color Urine Clarity Urine pH Ur Specific Crane Urine Protein Urine Glucose (UA) Urine Ketones Urine Occult Blood Urine Nitrite Urine Bilirubin Urine Urobilinogen Ur Leukocyte Esterase Ur Microscopic Review Urine Culture Comments 12/07/22 11:11 WBC RBC Hgb Hct MCV MCH MCHC RDW Plt Count MPV Neut # (Auto) Lymph # (Auto) Beckham # (Auto) Eos # (Auto) Baso # (Auto) Absolute Nucleated RBC Nucleated RBC % Sodium Potassium Chloride Carbon Dioxide Anion Gap BUN Creatinine Estimated GFR (MDRD) Glucose Calcium Total Bilirubin AST ALT Alkaline Phosphatase Total Protein Albumin Globulin Albumin/Globulin Ratio Lipase TSH Urine Color LIGHT YELLOW Urine Clarity CLEAR Urine pH 7.5 Ur Specific Crane 1.010 Urine Protein NEGATIVE Urine Glucose (UA) NEGATIVE Urine Ketones NEGATIVE Urine Occult Blood NEGATIVE Urine Nitrite NEGATIVE Urine Bilirubin NEGATIVE Urine Urobilinogen 0.2 (NORMAL) Ur Leukocyte Esterase NEGATIVE Ur Microscopic Review NOT INDICATED Urine Culture Comments NOT INDICATED PD Medical Decision Making - ED course Complexity details: reviewed results, re-evaluated patient, considered differential, d/w patient ED course: not been ill recently. No other complaints at this time. The patient was worked up with laboratory studies which were unremarkable. She was not in hypertensive emergency, but did have some discomfort with her dull frontal headache, and was treated symptomatically for this with IV fluids and analgesia. We discussed options of continuing to work with her primary care PA on a blood pressure regimen, versus doing an as needed plan for increase in blood pressure medication dosage, depending on how high her blood pressure is in the morning. The patient would like to do the latter, as she states her next appointment is Gwen Garcia is December 18 and she is supposed to leave on an [email or web address] cruise on December 21. I have made a plan with her for taking extra of her atenolol in the morning if blood pressure exceeds certain parameters. The patient may keep a record of the resultant blood pressures to give LABERTO Garcia a sense of whether or not this plan has been working and if so how well. The patient is agreeable to the plan. We have discussed the symptoms of hypertensive emergency which should prompt immediate return to the emergency department. Departure - Departure Disposition: 01 Home, Self Care Clinical Impression: Hypertension Qualifiers: Hypertension type: unspecified Qualified Code(s): I10 - Essential (primary) hypertension Condition: Stable Instructions: ED HTN Established Comments: Overall, your tests look fairly good. Your blood pressure is running high, and elm though there is no evidence of an emergent condition resulting from your high blood pressure, ideally your blood pressure should be lower than what it is . It is important that you continue to work with your PA to come up with a long-term plan; however, since you have not been feeling right with your blood pressure being elevated and since it has been significantly elevated for some days, we will give you an as needed blood pressure medicine plan, as follows. You should take your blood pressure In the morning about an hour after you take your atenolol. If you are still running greater then 150/90, then take a second dose of your atenolol. You can check your blood pressure in the midday and then in the evening about an hour after second dose of atenolol. Keep track of these numbers to discuss with your PA when you do see her. If you develop chest pain, shortness of breath, or any strokelike symptoms such as loss of use of an arm or leg or difficulty speaking or swallowing, please return to the emergency department immediately. Forms: PCP List Discharge Date/Time: 12/07/22 13:40
[2022-12-07 13:23] VITALS: BP 141/69; O2SAT 99
== END 2022-12-07 13:40 | disposition home or self-care (01) ==
LOC: ED 10:06
DX: I10 Essential (primary) hypertension (principal); R51.9 Headache, unspecified
CPT/HCPCS: 36415; 80053; 81003; 83690; 84443; 85025; 96361; 96374; 96375; 99283; A9270; J1170; 81001; 87086

== ENCOUNTER 2023-03-14 20:43 | Outpatient (CLI) | payer OTHER | END 2023-03-14 20:44 | disposition home or self-care (01) | LOC: SC 20:43 | PROVIDERS: ATTEND Nurse Practitioner Family | DX: G47.8 Other sleep disorders (principal); R06.83 Snoring; E66.9 Obesity, unspecified; E11.9 Type 2 diabetes mellitus without complications; I11.9 Hypertensive heart disease without heart failure | CPT/HCPCS: 95810 ==

== ENCOUNTER 2023-03-21 08:23 | Outpatient (CLI) | payer OTHER ==
--- NOTE | 2023-03-21 08:44 | Sleep Patient Instructions ---
Sleep Center Visit Summary - Patient Visit Information Reason for Visit: Sleep Study Followup - Patient Instructions Instructions Attached: Snoring Tips Prevent Additional Instructions: Your sleep study today was negative for significant sleep disordered breathing. You were found to have episodes of snoring. There are different ways to control snoring including weight loss, oral devices made by a dentist or surgical options through ENT specialist. You should not use oral devices that do not fit properly because they can affect your bite. You should also check insurance coverage of oral devices for snoring because they may not be cover well. You may obtain a referral to an ENT specialist through your primary provider. Follow-up as needed. - Clinic Information Contact: [facility] [address] [place] [address] [email or web address] T: [phone]
--- NOTE | 2023-03-21 08:48 | SLEEP CARE CONSULTATION ---
Information from patient questionnaire entered by Crystal Diaz. I have reviewed and concur with the information entered by Crystal Diaz. This document represents the service I personally performed and the decisions made by , Melania Glasgow ARNP. History of Present Illness Service Date and Time: 03/21/2023822 Initial [place] Sleepiness Scale score: 7 (01/21/23) Current [place] Sleepiness Scale score: 14 Additional HPI information: MERCY GONZALEZ returns for follow up and results of the recently performed polysomnography. The patient was informed of the following findings: No significant sleep disordered breathing with an average AHI of 4.7 and edyta oxygen saturation of 84%. Patient did not sleep supine. I explained the pathophysiology behind obstructive sleep apnea. Patient does not have sleep apnea and was advised how weight gain could increase the risk of developing sleep apnea in the future. I strongly encouraged the patient to lose weight. Patient has light to loud snoring. Snoring can be reduced by weight loss. Weight loss is best achieved with diet consult. Patient instructed to contact PCP for referral. Snoring can also be treated with an oral appliance from a dentist. Advised to check insurance coverage. In addition, an ENT evaluation can be do to see if other treatment is indicated. Patient counseled not drink alcohol less than 4 hours before bedtime as it can increase snoring and apnea. Patient was cautioned about risks of drowsy driving until sleepiness symptoms resolve. Patient denies drowsy driving. Sleep Study - Results Type of Sleep Study: Polysomnography (COMPLETED 03/14/23) Prior sleep studies: No Polysomnography/Home Sleep Study results: IMPRESSION: The quality of the study is good. The patient had normal sleep efficiency. The sleep architecture was also relatively normal considering the first-night effect. Respiratory monitoring showed no significant sleep disordered breathing (AHI = 4.7) or hypoxia (edyta oxygen saturation of 84% and only 1% to the total sleep time was spent with oxygen saturation below 90%). The respiratory events occurred mainly during REM sleep. The patient did not sleep supine during this study (supine AHI = 0.0; non-supine = 4.85). Snore was light to loud in intensity. There was no significant periodic leg movement of sleep. Cardiac rhythm was normal sinus rhythm without significant arrhythmia. No abnormal behavior (parasomnia) observed during the night. Allergies and Home Medications Known drug allergies: No Drug allergies reviewed: Yes Home medication list reviewed: Yes (no changes) Allergy and home medication list: Allergies No Known Drug Allergies Allergy (Verified 03/20/23 15:18) Review of Systems Review of systems same as previous: Yes (no changes) Physical Exam Vital signs obtained and entered by: MELANIA HORNE Blood Pressure: 145/76 Cuff size: wrist (left) Heart Rate: 61 O2 Saturation: 98 Height: 5 ft 4.8 in Weight: 182 lb 6.4 oz Body Mass Index: 30.5 BMI Classification: Obese Impression and Plan 1. Snoring but no significant sleep disordered breathing. However, she did not sleep supine during the sleep study and significant supine sleep disordered breathing cannot be ruled out. She states she does not sleep on her back at all. Patient advised that often weight loss will reduce snoring as well as apnea risk. An oral appliance can also be used for snoring. This would require a dental consultation. Patient cautioned not to use other online appliances as can cause bite issues. Patient is advised to check if insurance will cover. An ENT consult can also be helpful to determine if any other treatment is an option. 2. Obesity, unspecified. Currently patients BMI is 30.5. Obesity increases the risk of apnea, CPAP pressure requirements and overall health risks especially cardiovascular and diabetes. Thus patient is advised to lose weight. * Attempt to lose weight * Avoid supine sleep * Avoid alcohol consumption near bedtime * The patient is cautioned about driving until sleepiness is completely resolved. * Return as needed for follow up. Counseling Topics: Sleeping position, Weight loss health impact Follow up with Sleep Care in: as needed Visit Type: In Office Time Spent with Patient (minutes): 23 Provider Statement: I spent 100% of the Face to Face Visit with the patient with greater than 50% spent counseling the patient and coordination of care.
[2023-03-21 08:58] VITALS: BP 145/76; O2SAT 98
== END 2023-03-21 08:24 | disposition home or self-care (01) ==
LOC: SC 08:23
PROVIDERS: ATTEND Nurse Practitioner Family
DX: R06.83 Snoring (principal); E66.9 Obesity, unspecified; Z68.30 Body mass index [BMI] 30.0-30.9, adult
CPT/HCPCS: 99212; 99213

== ENCOUNTER 2023-03-27 11:15 | Day surgery (SDC) | payer OTHER ==
[2023-03-27] MEDS ORDERED: LACTATED RINGERS 1,000 ML IV ONE ×2 (11:18→14:07)
--- NOTE | 2023-03-27 11:43 | ANESTHESIA ---
Pre-Anesthesia VS, & Labs - Diagnosis hx of polyps - Procedure colonoscopy Vital Signs: Temp Pulse Resp BP Pulse Ox O2 Flow Rate 36.2 C L 81 16 146/83 H 98 0 03/27/23 11:32 03/27/23 11:32 03/27/23 11:32 03/27/23 11:32 03/27/23 11:32 03/27/23 11:32 Height: 5 ft 4 in Weight (kg): 79 kg Body Mass Index: 29.9 BMI Classification: Overweight - NPO >8 hours - Is Patient ?: No Home Medications and Allergies Atenolol [Tenormin] 50 mg PO BID 11/10/18 Calcium Carbonate/Vitamin D3 [Calcium 600-Vit D3 800 Tablet] 1,200 mg PO DAILY 11/10/18 Felodipine [Felodipine ER] 10 mg PO DAILY 11/10/18 Losartan Potassium 100 mg PO DAILY 11/10/18 Metformin HCl [Fortamet] 500 mg PO DAILY 11/10/18 Krill/Om-3/Dha/Epa/Phospho/Ast [Krill Oil 500 mg Softgel] 2,000 mg PO DAILY 03/20/22 Multivit-Min/Iron/Folic/Lutein [Multivitamin Women 50 Plus Tab] See Rx Instructions .ROUTE .COMPLEX 02/06/23 Vit C/Multivit-Min/Elderberry [Emergen-C Elderberry Gummy] See Rx Instructions .ROUTE .COMPLEX 02/06/23 hydroCHLOROthiazide [Hydrodiuril] 12.5 mg ORAL DAILY 02/06/23 Allergies/Adverse Reactions: Allergies Allergy/AdvReac Type Severity Reaction Status Date / Time No Known Drug Allergies Allergy Verified 03/26/23 14:02 Anes History & Medical History - Anesthetic History Anesthesia Complications: reports: No previous complications Family history of Anesthesia Complications: Denies Family history of Malignant Hyperthermia: Denies - Medical History Cardiovascular: reports: Hypertension, Valve disorder Pulmonary: reports: Pneumonia Gastrointestinal: reports: Colon polyps Urinary: reports: None Neuro: reports: Migraines Musculoskeletal: reports: Osteoarthritis, Osteoporosis, Osteopenia Endocrine/Autoimmune: reports: Type 2 diabetes Blood Disorders: reports: None Skin: reports: None Smoking Status: Never smoker - Surgical History General: reports: Appendectomy, Colonoscopy, EGD Cardiothoracic: Gynecologic: reports: Hysterectomy Orthopedic: reports: Other Dermatologic: reports: Skin cancer surgery Exam General: Alert, Oriented x3, Cooperative Dental: WNL Mouth Openin Fingerbreadth Neck Mobility: Normal Mallampati classification: II Thyromental Distance: 4-6 cm Respiratory: Lungs clear Cardiovascular: Regular rate Plan Anesthesia Type: General, Total IV Consent for Procedure(s) Verified and Reviewed: Yes Code Status: Attempt Resuscitation ASA classification: 3-Severe systemic disease Is this case an emergency?: No
[2023-03-27] MEDS ORDERED: PROPOFOL 200 MG/20 ML VIAL IVP ONE (12:09)
[2023-03-27] MEDS ORDERED: GLYCOPYRROLATE 1 MG/5 ML VIAL ONE (12:26)
[2023-03-27 14:05] VITALS: BP 146/81; O2SAT 99
--- NOTE | 2023-03-27 14:06 | ANESTHESIA POST OP EVALUATION ---
Anesthesia Post Eval - Post Anesthesia Eval Vitals: Last Vital Signs Temp 36.3 C L 03/27/23 13:30 Pulse 50 L 03/27/23 13:30 Resp 14 03/27/23 13:30 BP 146/81 H 03/27/23 13:30 Pulse Ox 99 03/27/23 13:30 O2 Flow Rate 0 03/27/23 11:32 CV Function Including HR & BP: Stable Pain Control: Satisfactory Nausea & Vomiting: Negative Mental Status: Baseline Respiratory Status: Airway Patent Hydration Status: Satisfactory Anesthesia Complications: None
== END 2023-03-27 11:16 | disposition home or self-care (01) ==
LOC: SDS 11:15
PROVIDERS: ATTEND Surgery
PROC: 0DBL8ZZ Excision of Transverse Colon, Via Natural or Artificial Opening Endoscopic (ICD-10-PCS; 2023-03-27)
PROC: 0DBN8ZZ Excision of Sigmoid Colon, Via Natural or Artificial Opening Endoscopic (ICD-10-PCS; principal; 2023-03-27 12:30)
DX: D12.3 Benign neoplasm of transverse colon (principal); K63.5 Polyp of colon; K64.2 Third degree hemorrhoids; E11.9 Type 2 diabetes mellitus without complications; Z79.84 Long term (current) use of oral hypoglycemic drugs; I10 Essential (primary) hypertension; Z87.891 Personal history of nicotine dependence
CPT/HCPCS: 45380; J7120

== ENCOUNTER 2023-05-30 10:01 | Outpatient (CLI) | payer OTHER ==
--- NOTE | 2023-05-31 09:14 | Mammography Report ---
BILATERAL DIGITAL SCREENING MAMMOGRAM 3D/2D: 05/30/2023 CLINICAL: Routine screening. Family history of breast cancer. Comparison is made to exams dated: 05/29/2022 mammogram, 05/07/2022 mammogram, 05/04/2021 mammogram, mammogram, 04/21/2019 mammogram, and 04/02/2018 mammogram - [facility]. Both breasts are heterogeneously dense, which may obscure small masses (category c / 51-75% glandular tissue). No significant masses, calcifications, or other findings are seen in either breast. There has been no significant interval change. IMPRESSION: NEGATIVE There is no mammographic evidence of malignancy. A 1 year screening mammogram is recommended. Based on the Tyrer Cuzick model (a risk assessment model) the patient's lifetime risk is 12.8% and he r 10 year risk is 7.7%. According to the ACR, ACS, and NCCN guidelines, an annual breast MRI exam luisa ng with mammogram is recommended if the patient's lifetime risk is 20% or greater. This exam was interpreted at Station ID: [id number]. NOTE: For mammograms, a report in lay terms will be sent to the patient. Approximately 15% of breast malignancies will not be visualized mammographically. In the management of a palpable breast mass, a negative mammogram must not discourage biopsy of a clinically suspicious lesion. Electronically Signed By: Moy quintero/torrie:05/30/2023 11:10:48 letter sent: No_Letter ACR BI-RADS Category 1: Negative 3341F PARENCHYMAL PATTERN: (D) - The breast(s) demonstrate(s) heterogeneously dense fibroglandular karlee luo. BI-RADS CATEGORY: (1) - 1 Mammogram [id number] 1 year screening LATERALITY: (B)
== END 2023-05-30 10:02 | disposition home or self-care (01) ==
LOC: DI.N 10:01
DX: Z12.31 Encounter for screening mammogram for malignant neoplasm of breast (principal); R92.333 Mammographic heterogeneous density, bilateral breasts; Z80.3 Family history of malignant neoplasm of breast

== ENCOUNTER 2023-11-11 08:16 | Outpatient (CLI) | payer OTHER ==
[2023-11-11 08:46] LABS: ALBUMIN 4.2 g/dL (3.2-5.5); ALBUMIN/GLOBULIN RATIO 1.3 (1.0-2.2); ALKALINE PHOSPHATASE 62 IU/L (42-121); ALT ALANINE AMINOTRANSFERASE 26 IU/L (10-60); AST ASPARTATE AMINOTRANSFERASE 18 IU/L (10-42); BILIRUBIN,TOTAL 0.5 mg/dL (0.2-1.0); BUN - BLOOD UREA NITROGEN 13 mg/dL (6-20); CALCIUM 9.9 mg/dL (8.5-10.3); CARBON DIOXIDE - CO2 33 mmol/L (21-32); CHLORIDE 102 mmol/L (101-111); CHOL/HDL RATIO 4.9 (<4.4); CHOLESTEROL 228 mg/dL; CREATININE 0.9 mg/dL (0.6-1.3); GFR - MDRD 62 (>89); GLUCOSE 120 mg/dL (74-104); HDL CHOLESTEROL 47 mg/dL; LDL CHOLESTEROL,CALCULATED 131 mg/dL; LDL/HDL RATIO 2.8 (<4.4); POTASSIUM 3.5 mmol/L (3.5-4.5); SODIUM 143 mmol/L (135-145); TOTAL PROTEIN 7.4 g/dL (6.4-8.9); TRIGLYCERIDES 250 mg/dL; VLDL CHOLESTEROL 50 mg/dL
[2023-11-11 14:56] LABS: ESTIMATED AVERAGE GLUCOSE 117 mg/dL (70-100); HEMOGLOBIN A1c% 5.7 % (4.27-6.07)
== END 2023-11-11 08:17 | disposition home or self-care (01) ==
LOC: LAB 08:16
PROVIDERS: ATTEND Physician Assistant Medical
DX: E78.5 Hyperlipidemia, unspecified (principal); R73.03 Prediabetes
CPT/HCPCS: 36415; 80053; 80061; 83036; 83721